=== PATIENT | female | born 1945 | race Caucasian/White ===

== ENCOUNTER → 2016-11-27 | Outpatient (REF) | payer MEDICARE, OTHER ==
[2016-11-27 15:39] LABS: ALBUMIN 3.6 GM/DL (3.2-5.2); ALBUMIN/GLOBULIN RATIO 1.33 (1.00-1.93); BILIRUBIN,TOTAL 0.4 MG/DL (0.2-1.0); CALCIUM LEVEL 8.9 MG/DL (8.8-10.2); CREATININE FOR GFR 1.29 MG/DL (0.55-1.02); GLOMERULAR FILTRATION RATE 43.5 (>39); POTASSIUM SERUM 5.1 MEQ/L (3.5-5.1); TOTAL PROTEIN 6.3 GM/DL (6.4-8.2)
== END ==
LOC: M SFHCLACO 08:04
PROVIDERS: ATTEND Physician Assistant
DX: I10 Essential (primary) hypertension (principal); E11.9 Type 2 diabetes mellitus without complications; E78.2 Mixed hyperlipidemia; E55.9 Vitamin D deficiency, unspecified

== ENCOUNTER → 2017-05-26 | Outpatient (REF) | payer OTHER ==
[2017-05-26 16:01] LABS: ALBUMIN 3.5 GM/DL (3.2-5.2); ALBUMIN/GLOBULIN RATIO 1.13 (1.00-1.93); BILIRUBIN,TOTAL 0.5 MG/DL (0.2-1.0); CREATININE FOR GFR 1.35 MG/DL (0.55-1.02); GLOMERULAR FILTRATION RATE 41.2 (>39); POTASSIUM SERUM 4.8 MEQ/L (3.5-5.1); TOTAL PROTEIN 6.6 GM/DL (6.4-8.2)
== END ==
LOC: M SFHCLACO 08:31
PROVIDERS: ATTEND Physician Assistant
DX: E11.9 Type 2 diabetes mellitus without complications (principal); I10 Essential (primary) hypertension; E78.2 Mixed hyperlipidemia; E55.9 Vitamin D deficiency, unspecified

== ENCOUNTER → 2017-10-01 | Outpatient (REF) | payer OTHER ==
[2017-10-01 15:36] LABS: TOTAL 25(OH) VITAMIN D 21.7 NG/ML (30.0-100.0)
[2017-10-01 15:53] LABS: ALBUMIN 3.1 GM/DL (3.2-5.2); ALBUMIN/GLOBULIN RATIO 0.91 (1.00-1.93); ALKALINE PHOSPHATASE 37 U/L (45-117); ALT/SGPT 20 U/L (12-78); ANION GAP 8 MEQ/L (8-16); AST/SGOT 16 U/L (7-37); BILIRUBIN,TOTAL 0.4 MG/DL (0.2-1.0); BLOOD UREA NITROGEN 17 MG/DL (7-18); CALCIUM LEVEL 8.7 MG/DL (8.8-10.2); CARBON DIOXIDE LEVEL 28 MEQ/L (21-32); CHLORIDE LEVEL 106 MEQ/L (98-107); CHOLESTEROL LEVEL 126 MG/DL (<200); CHOLESTEROL RISK RATIO 3.937 (<5); CREATININE FOR GFR 1.14 MG/DL (0.55-1.02); GLUCOSE, FASTING 150 MG/DL (83-110); HDL CHOLESTEROL 32 MG/DL (>40); LDL CHOLESTEROL 35.2 MG/DL (<100); NON-HDL-C 94 MG/DL; POTASSIUM SERUM 4.1 MEQ/L (3.5-5.1); SODIUM LEVEL 142 MEQ/L (136-145); TOTAL PROTEIN 6.5 GM/DL (6.4-8.2); TRIGLYCERIDES LEVEL 294 MG/DL (<150)
[2017-10-01 17:40] LABS: ESTIMATED AVERAGE GLUCOSE 151 MG/DL (60-110); HEMOGLOBIN A1c 6.9 %
== END ==
LOC: M SFHCLACO 08:25
DX: I10 Essential (primary) hypertension (principal); E11.9 Type 2 diabetes mellitus without complications; E78.2 Mixed hyperlipidemia; E55.9 Vitamin D deficiency, unspecified
CPT/HCPCS: 80053

== ENCOUNTER → 2018-04-06 | Outpatient (REF) | payer OTHER ==
[2018-04-06 15:14] LABS: ALKALINE PHOSPHATASE 43 U/L (45-117); ALT/SGPT 20 U/L (12-78); ANION GAP 7 MEQ/L (8-16); AST/SGOT 15 U/L (7-37); BILIRUBIN,TOTAL 0.4 MG/DL (0.2-1.0); BLOOD UREA NITROGEN 36 MG/DL (7-18); CARBON DIOXIDE LEVEL 27 MEQ/L (21-32); CHLORIDE LEVEL 106 MEQ/L (98-107); CREATININE FOR GFR 1.42 MG/DL (0.55-1.30); GLOMERULAR FILTRATION RATE 38.7 (>39); GLUCOSE, FASTING 150 MG/DL (70-100); POTASSIUM SERUM 5.1 MEQ/L (3.5-5.1); SODIUM LEVEL 140 MEQ/L (136-145); TRIGLYCERIDES LEVEL 269 MG/DL (<150)
[2018-04-06 15:15] LABS: ALBUMIN 3.4 GM/DL (3.2-5.2); CHOLESTEROL LEVEL 117 MG/DL (<200); HDL CHOLESTEROL 30 MG/DL (>40); LDL CHOLESTEROL 33.2 MG/DL (<100); NON-HDL-C 87 MG/DL; TOTAL PROTEIN 6.8 GM/DL (6.4-8.2)
[2018-04-06 15:23] LABS: ESTIMATED AVERAGE GLUCOSE 171 MG/DL (60-110); HEMOGLOBIN A1c 7.6 %
[2018-04-06 15:56] LABS: TOTAL 25(OH) VITAMIN D 28.3 NG/ML (30.0-100.0)
== END ==
LOC: M SFHCLACO 08:04
DX: I10 Essential (primary) hypertension (principal); E78.2 Mixed hyperlipidemia; E11.9 Type 2 diabetes mellitus without complications; N28.9 Disorder of kidney and ureter, unspecified; E55.9 Vitamin D deficiency, unspecified; M15.9 Polyosteoarthritis, unspecified; Z79.899 Other long term (current) drug therapy
CPT/HCPCS: 80053

== ENCOUNTER → 2018-04-13 | Outpatient (REF) | payer OTHER ==
[2018-04-13 15:29] LABS: CREATININE, URINE 52.9 MG/DL; MALB URINE SIEMENS 9.9 MG/L; MAU/CREAT RATIO 18.7 MCG/MG (0.0-30.0)
== END ==
LOC: M SFHCLACO 14:45
DX: N28.9 Disorder of kidney and ureter, unspecified (principal)
CPT/HCPCS: 82043

== ENCOUNTER → 2020-02-28 | Outpatient (CLI) | payer MEDICARE ==
[~2020-02-28] MED LIST: AMLO10TA5 PO; ASPI81TA85 PO; COLE625TAB PO; FENO160T10 PO; FISH1000 PO; FLUT15.819; GLIP10TA6 PO; ISOS30TA4 PO; JANU100T PO; LOSA100T50 PO; METO25TA4 PO; TORS20TA2 PO; VITAD1000T PO
== END ==
LOC: M LABSMTC 13:12
PROVIDERS: ATTEND Anesthesiology
DX: Z01.818 Encounter for other preprocedural examination (principal); Z11.59 Encounter for screening for other viral diseases
CPT/HCPCS: C9803; U0003

== ENCOUNTER 2020-03-02 09:05 | Day surgery (SDC) | payer MEDICARE ==
[~2020-03-02] VITALS: Ht 160 cm; Wt 77.1 kg
[~2020-03-02 09:05] MED LIST changes: -AMLO10TA5 PO; +AMLO1TAB25 PO; -ASPI81TA85 PO; +ASPI81TA86 PO; +D31000TA2 PO; -FLUT15.819; +FLUT15.819 NARES; +ISOS1TAB35 PO; -ISOS30TA4 PO; +NS 1,000 ML IV ONE; -VITAD1000T PO
[2020-03-02] MEDS ORDERED: LIDOCAINE 2% 100MG/5ML SDV (FOR ANES.) As Ordered ONE (10:48)
[2020-03-02] MEDS ORDERED: fentaNYL 100 MCG/2 ML INJECTION (J3010) As Ordered ONE (10:48)
[2020-03-02] MEDS ORDERED: propofoL 200 MG/20 ML VIAL As Ordered ONE (10:48)
[2020-03-02] MEDS ORDERED: ePHEDrine SULFATE 25 MG/5 ML(5MG/ML) SYRINGE As Ordered ONE (11:05)
--- NOTE | 2020-03-02 11:06 | ROOR ---
Patient Name: Madelyn Zepeda Procedure Date: 03/02/2020 10:40 AM Date of : 1945 Age: 74 Room: [facility] Gender: Female Note Status: Finalized Procedure: Upper GI endoscopy Indications: Suspected gastroparesis, Nausea with vomiting Providers: Hero GARCIA MD Referring MD: GULSHAN Montanez PA-C Requesting Provider: Medicines: Monitored Anesthesia Care Complications: No immediate complications. Procedure: Pre-Anesthesia Assessment: - The heart rate, respiratory rate, oxygen saturations, blood pressure, adequacy of pulmonary ventilation, and response to care were monitored throughout the procedure. The Endoscope was introduced through the mouth, and advanced to the second part of duodenum. The upper GI endoscopy was accomplished without difficulty. The patient tolerated the procedure well. Findings: Severe esophagitis was found in the entire esophagus. Biopsies were taken with a cold forceps for histology. A medium-sized hiatal hernia with a few Travis ulcers was found. The Z-line was a variable distance from incisors; the hiatal hernia was sliding. Biopsies were taken with a cold forceps for histology. The exam of the stomach was otherwise normal. The examined duodenum was normal. Impression: - Severe erosive esophagitis. Biopsied. - Medium-sized hiatal hernia with a few Travis erosions at the waist. Biopsied. - Normal examined duodenum. Recommendation: - Use Prilosec (omeprazole) 40 mg daily. - (the script was sent to your pharmacy on file) - Telephone endoscopist for pathology results in 2 weeks. - Gastroparesis diet: - Eat smaller, more frequent meals throughout the day. - Low fat diet. - Liquid/soft foods are tolerated better than solid foods. - Low fiber/well cooked vegetables are tolerated better than high fiber/fibrous foods/raw vegetables. - Avoid medications that inhibit gastric/intestinal motility such as narcotic medications. - If biopsies show simple esophagitis, then continue PPI and dietary regimen. - If biopsies show Barretts esophagus, then would repeat EGD in 3-4 months for surveillance after inflammation resolved. Hero Garcia MD Hero GARCIA MD 03/02/2020 11:06:40 AM Electronically signed by Hero GARCIA MD Number of Addenda: 0 Note Initiated On: 03/02/2020 10:40 AM Estimated Blood Loss: Estimated blood loss: none.
--- NOTE | 2020-03-02 11:33 | ROOR ---
Patient Name: Madelyn Zepeda Procedure Date: 03/02/2020 10:41 AM Date of : 1945 Age: 74 Room: [facility] Gender: Female Note Status: Finalized Procedure: Colonoscopy Indications: High risk colon cancer surveillance: Personal history of colonic polyps, Last colonoscopy: August 2014, Family history of colon cancer in multiple first-degree relatives Providers: Hero GARCIA MD Referring MD: GULSHAN Montanez PA-C Requesting Provider: Medicines: Monitored Anesthesia Care Complications: No immediate complications. Procedure: Pre-Anesthesia Assessment: - The heart rate, respiratory rate, oxygen saturations, blood pressure, adequacy of pulmonary ventilation, and response to care were monitored throughout the procedure. The Colonoscope was introduced through the anus and advanced to the cecum, identified by appendiceal orifice and ileocecal valve. The colonoscopy was performed without difficulty. The patient tolerated the procedure well. The quality of the bowel preparation was good. Findings: The perianal and digital rectal examinations were normal. Five sessile polyps were found in the sigmoid colon and descending colon. The polyps were 5 to 6 mm in size. These polyps were removed with a cold snare. Resection and retrieval were complete. Three sessile polyps were found in the ascending colon and appendiceal orifice. The polyps were 5 to 8 mm in size. These polyps were removed with a cold snare. Resection and retrieval were complete. Mild sigmoid diverticulosis and small internal hemorrhoids. The exam was otherwise without abnormality. Impression: - Five 5 to 6 mm polyps in the sigmoid colon and in the descending colon, removed with a cold snare. Resected and retrieved. - Three 5 to 8 mm polyps in the ascending colon and at the appendiceal orifice, removed with a cold snare. Resected and retrieved. - Mild sigmoid diverticulosis and moderate internal hemorrhoids. - The colon examination was otherwise normal. Recommendation: - Repeat colonoscopy in 3 years for surveillance. Hero Garcia MD Hero GARCIA MD 03/02/2020 11:33:07 AM Electronically signed by Hero GARCIA MD Number of Addenda: 0 Note Initiated On: 03/02/2020 10:41 AM Estimated Blood Loss: Estimated blood loss: none.
[2020-03-02 11:55] VITALS: BP 150/67
[2020-08-22] MEDS ORDERED: VENTAER INH (13:30)
[2020-08-30] MEDS ORDERED: VITA-243 PO (10:13)
[2020-08-30] MEDS ORDERED: ASPI81TA26 PO (10:13)
[2020-09-19] MEDS ORDERED: OMEP40CA97 PO (15:31)
== END 2020-03-02 12:10 | disposition home or self-care (01) ==
LOC: M OPP 09:05
PROVIDERS: ATTEND Internal Medicine Gastroenterology
DX: Z12.11 Encounter for screening for malignant neoplasm of colon (principal); Z86.010 Personal history of colon polyps; Z80.0 Family history of malignant neoplasm of digestive organs; D12.3 Benign neoplasm of transverse colon; D12.5 Benign neoplasm of sigmoid colon; K20.8 Other esophagitis; K44.9 Diaphragmatic hernia without obstruction or gangrene; K25.9 Gastric ulcer, unspecified as acute or chronic, without hemorrhage or perforation; R11.2 Nausea with vomiting, unspecified; K57.30 Diverticulosis of large intestine without perforation or abscess without bleeding; K64.8 Other hemorrhoids; E11.9 Type 2 diabetes mellitus without complications; Z79.82 Long term (current) use of aspirin; Z79.84 Long term (current) use of oral hypoglycemic drugs; Z79.899 Other long term (current) drug therapy; Z91.040 Latex allergy status
CPT/HCPCS: 43239; 45385; 88305; 88313; J3010

== ENCOUNTER 2020-04-04 10:59 | Inpatient (IN) | payer MEDICARE ==
[~2020-04-04] VITALS: Ht 160 cm; Wt 86.0 kg
[~2020-04-04 10:59] MED LIST changes: +AMLO10TA5 PO; -AMLO1TAB25 PO; +ASPI81TA85 PO; -ASPI81TA86 PO; -D31000TA2 PO; -ISOS1TAB35 PO; +ISOS30TA4 PO; -NS 1,000 ML IV ONE; +VITAD1000T PO
[2020-04-04] MEDS ORDERED: NS 1,000 ML IV ONE (12:15)
[2020-04-04 12:38] LABS: BASO % 0.3 % (0.0-1.0); EOS % 0.1 % (0.0-3.0); HEMATOCRIT 37.9 % (36.0-47.0); LYMPH # 0.3 10^3/uL (1.5-5.0); LYMPH % 1.8 % (24.0-44.0); MEAN CORPUSCULAR HEMOGLOBIN 31.4 pg (27.0-33.0); MEAN CORPUSCULAR HGB CONC 34.3 g/dl (32.0-36.5); MEAN CORPUSCULAR VOLUME 91.5 fl (80.0-96.0); MONO # 0.7 10^3/uL (0.0-0.8); MONO % 4.6 % (0.0-5.0); NEUTROPHILS # 14.6 10^3/uL (1.5-8.5); NEUTROPHILS % 92.6 % (36.0-66.0); PLATELET COUNT, AUTOMATED 232 10^3/uL (150-450); RED BLOOD COUNT 4.14 10^6/uL (4.00-5.40); WHITE BLOOD COUNT 15.8 10^3/uL (4.0-10.0)
[2020-04-04 12:53] LABS: APPEARANCE, URINE HAZY (CLEAR); BACTERIA, URINE AUTO 3+ (NEGATIVE); BILIRUBIN, URINE AUTO NEGATIVE (NEGATIVE); BLOOD, URINE BLOOD NEGATIVE (NEGATIVE); COLOR, URINE YELLOW (YELLOW); GLUCOSE, URINE (UA) AUTO NEGATIVE (NEGATIVE); KETONE, URINE AUTO NEGATIVE (NEGATIVE); LEUKOCYTE ESTERASE, URINE AUTO TRACE (NEGATIVE); NITRITE, URINE AUTO NEGATIVE (NEGATIVE); PROTEIN, URINE AUTO NEGATIVE (NEGATIVE); RBC, URINE AUTO 2 /HPF (0-3); SPECIFIC GRAVITY URINE AUTO 1.008 (1.002-1.035); SQUAMOUS EPITHELIAL CELL UR AU 0 /HPF (0-6); UROBILINOGEN, URINE AUTO 0.2 mg/dL (0.0-2.0); WBC, URINE AUTO 14 /HPF (0-3)
[2020-04-04 13:10] LABS: ALBUMIN 3.2 GM/DL (3.2-5.2); ALT/SGPT 230 U/L (12-78); BILIRUBIN,DIRECT 2.1 MG/DL (0.0-0.2); BILIRUBIN,TOTAL 2.8 MG/DL (0.2-1.0); BLOOD UREA NITROGEN 22 MG/DL (7-18); CALCIUM LEVEL 8.7 MG/DL (8.8-10.2); CARBON DIOXIDE LEVEL 25 MEQ/L (21-32); CHLORIDE LEVEL 103 MEQ/L (98-107); CK-MB VALUE MASS < 1.0 NG/ML (<3.6); CPK CREATINE PHOSPHOKINASE 61 U/L (26-192); CREATININE FOR GFR 1.42 MG/DL (0.55-1.30); GLOMERULAR FILTRATION RATE 38.5 (>39); GLUCOSE, FASTING 252 MG/DL (70-100); MB/CK RELATIVE INDEX 1.64 (< OR =4); NT-PRO BNP 535 PG/ML (<125); POTASSIUM SERUM 3.6 MEQ/L (3.5-5.1); SODIUM LEVEL 137 MEQ/L (136-145); TOTAL PROTEIN 6.4 GM/DL (6.4-8.2); TROPONIN I < 0.02 NG/ML (< 0.10)
[2020-04-04] MEDS ORDERED: ISOVUE-370 76% 100ML VIAL As Ordered ONE (14:13)
[2020-04-04] MEDS ORDERED: AMPICILLIN SOD/SULBACTAM SOD 3 GM in D5W MINI-BAG PLUS 100 ML IV ONE (17:15)
[2020-04-04] MEDS ORDERED: ONDANSETRON 4MG/2ML VIAL IV ONE (17:45)
[2020-04-04] MEDS ORDERED: PIPERACILLIN/TAZOBACTAM SOD 3.375 GM in D5W MINI-BAG PLUS 50 ML IV ONE (17:45)
--- NOTE | 2020-04-04 17:45 | REP ---
REASON: Abdominal pain PRIORS: None. CONTRAST: 100 mL Isovue-370. The lung bases are clear. There is a hiatal hernia. There is cholelithiasis. There might be a tiny amount of pericholecystic fluid with a slightly enhancing gallbladder wall. The liver, spleen, pancreas, adrenal glands, and kidneys are within normal limits. The abdominal aorta and para-aortic regions are within normal limits. The bowel loops and their mesenteries are within normal limits. There is no intra-abdominal or intrapelvic mass or adenopathy. There is no free fluid or free air. The osseous structures are within normal limits. IMPRESSION: Cholelithiasis and possible early cholecystitis. There is a hiatal hernia. Electronically Signed by Derrick Park DO 04/04/2020 06:46 P
[2020-04-04] MEDS ORDERED: FLAX100012 PO (18:58)
[2020-04-04] MEDS ORDERED: OMEP-221 PO (18:58)
[2020-04-04] MEDS ORDERED: PIPERACILLIN/TAZOBACTAM SOD 3.375 GM in D5W MINI-BAG PLUS 50 ML IV SCH (19:00)
[2020-04-04] MEDS ORDERED: GLUCOSE 4GM CHEW TABLET PO PRN (19:00)
[2020-04-04] MEDS ORDERED: DEXTROSE 50% 50 ML SYRINGE IV PRN (19:00)
[2020-04-04] MEDS ORDERED: ONDANSETRON 4MG/2ML VIAL IV PRN (19:00)
[2020-04-04] MEDS ORDERED: GLUCAGON INJ 1MG VIAL SC PRN (19:00)
--- NOTE | 2020-04-04 19:16 | HPEPDOC ---
General Date of Admission 04/04/20 Date of Service: Apr 04, 2020 Chief Complaint The patient is a 75-year-old female admitted with a reason for visit of Fever, Pain All Over. Source: Patient Exam Limitations: No limitations Timing/Duration: 24 hours Severity: Severe Associated Symptoms: Loss of appetite History of Present Illness Patient is 75 years old female with past medical history of hyperlipidemia, hypertension, diabetes presented to the hospital with abdominal pain. Patient st ated that in the morning she developed right upper quadrant abdominal pain and stated with nausea and a few episodes of vomiting. Also patient developed fever of 103 with chills. Fever subsided after Tylenol. Patient stated that she never had symptoms before. In emergency room patient was found to have on CT Cholelithiasis and possible early cholecystitis, ultrasound showed dilatation of CBD to 0.9 cm. Also patient was found to have leukocytosis of 15.6 with transaminitis and elevated bilirubin. Dr. Brush will proceed with ERCP tomorrow. Home Medications Scheduled Amlodipine Besylate (Amlodipine Besylate) 10 Mg Tablet, 10 MG PO DAILY, (Reported) Aspirin (Aspir 81) 81 Mg Tablet.dr, 81 MG PO DAILY, (Reported) Cholecalciferol (Vitamin D3) (Vitamin D3) 1,000 Unit Tablet, 2,000 UNITS PO DAILY, (Reported) Colesevelam Hydrochloride (Welchol) 625 Mg Tablet, 1,875 MG PO BID, (Reported) Fenofibrate (Fenofibrate) 160 Mg Tablet, 160 MG PO DAILY, (Reported) Flaxseed Oil (Flaxseed Oil) 1,000 Mg Capsule, 1,000 MG PO DAILY, (Reported) Fluticasone Propionate (Fluticasone Propionate) 15.8 Ml [place].susp, 2 SPRAYS NARES DAILY, (Reported) Glipizide (Glipizide) 10 Mg Tablet, 10 MG PO BID, (Reported) Isosorbide Mononitrate (Isosorbide Mononitrate ER) 30 Mg Tab.er.24h, 30 MG PO DAILY, (Reported) Losartan Potassium (Losartan Potassium) 100 Mg Tablet, 100 MG PO DAILY, (Reported) Metoprolol Tartrate (Metoprolol Tartrate) 25 Mg Tablet, 25 MG PO QHS, (Reported) [place]-3 Fatty Acids/Fish Oil (Fish Oil 1,000 mg Capsule) 1 Each Capsule, 1,000 MG PO DAILY, (Reported) Omeprazole (Omeprazole) 40 Mg Capsule.dr, 40 MG PO DAILY, (Reported) Sitagliptin Phosphate (Januvia) 100 Mg Tablet, 100 MG PO DAILY, (Reported) Torsemide (Torsemide) 20 Mg Tablet, 20 MG PO DAILY, (Reported) Allergies Coded Allergies: latex (Verified Allergy, Intermediate, fingers bled from gloves, 02/28/20) Past Medical History Medical History HYPERTENSION HYPERLIPIDEMIA DIABETES OSTEOARTHRITIS VITAMIN D DEFICIENCY Surgical History TOTAL ABDOMINAL HYSTERECTOMY/BILATERAL SALPINGO-OOPHORECTOMY 1990 EXPLORATORY ABDOMINAL SURGERY - POSSIBLE APPENDECTOMY 1971 Family History FATHER: 70 YRS, CANCER OF BRAIN MOTHER: 88 YRS, COLON CANCER, METASTASIZED TO BLADDER, BUT DID SUFFER FROM HYPERTENSION SIBLINGS: 18 DAYS OL YRS, IBS HAVE DM, A-FIB. ONE SISTER WITH COLON CANCER SON(S): HTN 2 BROTHER(S) , 3 SISTER(S) . 2 SON(S) , 1 DAUGHTER(S) . Social History * Smoker: Denies Alcohol: Denies Drugs: denies A-FIB/CHADSVASC A-FIB History Current/History of A-Fib/PAF?: No Current PO Anticoag Therapy: No Review of Systems Constitutional: Reports: Chills, Fever, Malaise Eyes: Denies: Pain ENT: Denies: Head Aches Skin: Denies: Rash Pulmonary: Denies: Dyspnea, Cough Cardiovascular: Denies: Chest Pain, Palpitations Gastrointestinal: Reports: Nausea, Vomiting, Abdominal Pain Genitourinary: Denies: Dysuria Hematologic: Denies: Bruising Endocrine: Denies: Polydipsia, Polyphagia Musculoskeletal: Denies: Neck Pain, Back Pain Neurological: Denies: Weakness Psych: Reports: Mood Normal Physical Examination General Exam: Positive: Alert, Cooperative Eye Exam: Positive: PERRLA ENT Exam: Positive: Atraumatic Neck Exam: Positive: Supple; Negative: JVD Chest Exam: Positive: Clear to auscultation Heart Exam: Positive: Rate Normal Telemetry: Positive: No significant arrhythmia Abdomen Exam: Positive: BS Hypoactive, Tenderness (right upper quadrant) Extremity Exam: Negative: Clubbing, Cyanosis Skin Exam: Positive: Nl turgor and temperature Neuro Exam: Positive: Strength at 5/5 X4 ext, Cranial Nerves 3-12 NL Psych Exam: Positive: Mental status NL Vital Signs Vital Signs Date Time Temp Pulse Resp B/P (MAP) Pulse Ox O2 Delivery O2 Flow Rate FiO2 04/04/20 17:01 98.2 77 22 161/69 (99) 97 Room Air Laboratory Data Labs 24H Laboratory Tests 2 04/04/20 12:04: Immature Granulocyte % (Auto) 0.6, Neutrophils (%) (Auto) 92.6H, Lymphocytes (%) (Auto) 1.8L, Monocytes (%) (Auto) 4.6, Eosinophils (%) (Auto) 0.1, Basophils (%) (Auto) 0.3, Neutrophils # (Auto) 14.6H, Lymphocytes # (Auto) 0.3L, Monocytes # (Auto) 0.7, Eosinophils # (Auto) 0.0, Basophils # (Auto) 0.0, Nucleated Red Blood Cells % (auto) 0.0, Anion Gap 9, Glomerular Filtration Rate 38.5L, Lactic Acid Level 2.1*H, Calcium Level 8.7L, Total Bilirubin 2.8H, Direct Bilirubin 2.1H, Aspartate Amino Transf (AST/SGOT) 395H, Alanine Aminotransferase (ALT/SGPT) 230H, Alkaline Phosphatase 61, Total Creatine Kinase 61, Creatine Kinase MB < 1.0, Creatine Kinase MB Relative Index 1.64, Troponin I < 0.02, JO-Ndc-Y-Type Natriuretic Peptide 535H, Total Protein 6.4, Albumin 3.2, Albumin/Globulin Ratio 1.0L 04/04/20 12:10: Urine Color YELLOW, Urine Appearance HAZY, Urine pH 5.0, Urine Specific [place] 1.008, Urine Protein NEGATIVE, Urine Glucose (Auto)(UA) NEGATIVE, Urine Ketones (Auto) NEGATIVE, Urine Blood NEGATIVE, Urine Nitrite NEGATIVE, Urine Bilirubin NEGATIVE, Urine Urobilinogen 0.2, Urine Leukocyte Esterase (Auto) TRACEH, Urine WBC (Auto) 14H, Urine RBC (Auto) 2, Urine Hyaline Casts (Auto) 0, Urine Bacteria (Auto) 3+H, Urine Squamous Epithelial Cells 0, Urine Sperm (Auto) CBC/BMP Laboratory Tests 04/04/20 12:04 Microbiology Microbiology 04/04/20 Urine Culture, Received Pending 04/04/20 Respiratory Virus Panel (PCR) (JESUS) - Final, Complete 04/04/20 Blood Culture, Received Pending 7/15/20 Blood Culture, Received Pending Assessment/Plan Patient is 75 years old female with past medical history of hyperlipidemia, hypertension, diabetes presented to the hospital with abdominal pain. Patient stated that in the morning she developed right upper quadrant abdominal pain and stated with nausea and a few episodes of vomiting. Also patient developed fever of 103 with chills. Fever subsided after Tylenol. Patient stated that she never had symptoms before. In emergency room patient was found to have on CT Cholelithiasis and possible early cholecystitis, ultrasound showed dilatation of CBD to 0.9 cm. Also patient was found to have leukocytosis of 15.6. Dr. Brush will proceed with ERCP tomorrow. Problems (1) Sepsis Status: Acute Problem Text: Most likely secondary to initial phase of ascending cholangitis given fever, leukocytosis, right upper quadrant pain, elevated liver enzymes with elevated bilirubin ERCP tomorrow Zosyn IV Clear liquid for now IV fluid Blood culture (2) Common bile duct dilatation Status: Acute Problem Text: Most likely secondary to common bile stone ERCP tomorrow Pain management Appreciate/agree with GI consult (3) Cholecystitis with cholelithiasis Status: Acute Problem Text: See above Plan / VTE VTE Prophylaxis Ordered?: Yes EDDI COLLINS DO Apr 04, 2020 19:16
[2020-04-04] MEDS ORDERED: MORPHINE 2 MG/ML 1ML VIAL (J2270) IV PRN (19:30)
[2020-04-04 20:19] LABS: ALBUMIN 3.2 GM/DL (3.2-5.2); BILIRUBIN,DIRECT 1.8 MG/DL (0.0-0.2); BILIRUBIN,TOTAL 2.3 MG/DL (0.2-1.0); TOTAL PROTEIN 6.5 GM/DL (6.4-8.2)
[2020-04-04] MEDS: NS 1,000 ML IV SCH (22:48)
[2020-04-04] MEDS: HEPARIN SOD (PORCINE) 5000UNITS/ML VIAL (J1644 PER 1000UNITS) SC SCH (22:50)
[2020-04-04] MEDS: HumaLOG INSULIN (NovoLOG) PER UNIT SC SCH (23:51)
[2020-04-05] VITALS (9 sets, daily range): BP systolic 126–145; BP diastolic 52–79
[2020-04-05] MEDS: ACETAMINOPHEN TAB 650MG DOSE (2X325MG) PO PRN ×2 (00:53→09:42)
[2020-04-05] MEDS: PIPERACILLIN/TAZOBACTAM SOD 2.25 GM in D5W MINI-BAG PLUS 50 ML IV SCH ×4 (01:09→18:29)
--- NOTE | 2020-04-05 03:01 | REP ---
RIGHT UPPER QUADRANT ULTRASOUND: Real-time sonographic evaluation of right upper quadrant performed. Gallstones are seen in the gallbladder. There is no gallbladder wall thickening or pericholecystic fluid. There is dilatation of the common bile duct up to 9 mm. There appears to be mild fibrofatty infiltration of the liver. There is no gross liver or pancreatic mass. Right kidney demonstrates no hydronephrosis with normal size, 10.4 cm in length. IMPRESSION: Gallstones in the gallbladder without gallbladder wall thickening or pericholecystic fluid. There is mild dilatation of the common bile duct up to 9 mm. Electronically Signed by Michael Sevilla MD 04/08/2020 11:32 P
[2020-04-05] MEDS: HumaLOG INSULIN (NovoLOG) PER UNIT SC SCH ×3 (06:00→18:30)
[2020-04-05 06:35] LABS: HEMATOCRIT 35.9 % (36.0-47.0); HEMOGLOBIN 12.2 g/dl (12.0-15.5); MEAN CORPUSCULAR HEMOGLOBIN 31.4 pg (27.0-33.0); MEAN CORPUSCULAR VOLUME 92.3 fl (80.0-96.0); PLATELET COUNT, AUTOMATED 197 10^3/uL (150-450); RED BLOOD COUNT 3.89 10^6/uL (4.00-5.40); WHITE BLOOD COUNT 10.5 10^3/uL (4.0-10.0)
[2020-04-05 07:13] LABS: ALBUMIN 2.9 GM/DL (3.2-5.2); BILIRUBIN,TOTAL 2.2 MG/DL (0.2-1.0); CALCIUM LEVEL 8.2 MG/DL (8.8-10.2); CREATININE FOR GFR 1.17 MG/DL (0.55-1.30); GLOMERULAR FILTRATION RATE 48.1 (>39); MAGNESIUM LEVEL 1.7 MG/DL (1.8-2.4); POTASSIUM SERUM 3.5 MEQ/L (3.5-5.1); TOTAL PROTEIN 5.8 GM/DL (6.4-8.2)
[2020-04-05] MEDS: HEPARIN SOD (PORCINE) 5000UNITS/ML VIAL (J1644 PER 1000UNITS) SC SCH ×2 (09:41→19:57)
[2020-04-05] MEDS: NS 1,000 ML IV SCH ×2 (09:41→11:33)
--- NOTE | 2020-04-05 11:32 | IPNPDOC ---
Text Note Date of Service The patient was seen on 04/05/20. NOTE SUBJECTIVE: Patient was seen and examined this morning lying comfortably in bed. She states her pain is much improved from when she came in. She denies any history of gallstones in the past. She had been tolerating clear liquid diet, and this was stopped this morning for ERCP later today. OBJECTIVE: VITAL SIGNS: See below GENERAL: Alert, comfortable, in no acute distress HEENT: Normocephalic, atraumatic, sclerae anicteric, moist mucous membranes NECK: Supple, trachea midline, no lymphadenopathy, no JVD CARDIOVASCULAR: Regular rate and rhythm, normal S1 and S2. No murmurs, rubs, or gallops RESPIRATORY: Clear to auscultation bilaterally with equal air entry bilaterally. No wheezing, rhonchi, or rales. ABDOMEN: Soft, nondistended, bowel sounds present, obese, tender to deep palpation over the right upper quadrant. EXTREMITIES: Trace edema. No cyanosis. Pulses 2+/4 in bilateral upper and lower extremities SKIN: Early, warm, dry NEUROLOGIC: Alert and oriented x3 to person, place and time. Cranial nerves 2-12 grossly intact. No focal deficits appreciated PSYCHIATRIC: Mood and affect appropriate ASSESSMENT/PLAN: 75-year-old female who presented with 1 day of right upper quadrant abdominal pain with nausea and vomiting, admitted for management of suspected ascending cholangitis # Sepsis secondary to ascending cholangitis. 4/4 SIRS criteria with fever 101.7 F, RR 22, HR 97, WBC count 15.8 No clear evidence of choledocholithiasis or acute cholecystitis on imaging. There is evidence of common bile duct dilation, which would likely be due to a distal obstruction GI consulted, appreciate their input and recommendations. Plan for ERCP today to further evaluate. Continue antibiotics with IV Zosyn day #2. Blood cultures 3 pending. #Abnormal liver profile likely related to obstruction as noted above, plan for ERCP today with GI #Elevated lipase. No evidence of acute pancreatitis on CT imaging. Pain profile is not characteristic of acute pancreatitis. May be due to recent obstruction, evaluation with ERCP as noted above #YONNY secondary to dehydration. Improved after IV fluid hydration. Monitor BMP daily. #Diabetes mellitus type 2. Currently nothing by mouth, will switch to consistent carbohydrate diet postoperatively. Hold home oral medications. Sliding scale insulin while inpatient. Hypoglycemia protocol #Hypertension. Hold home antihypertensives, reasses postoperative based on blood pressure #Hyperlipidemia. Hold home medications while nothing by mouth #GERD. Hold home ppi while npo DVT prophylaxis: sc heparin Disposition: Pending ERCP and clinical improvement GME ATTESTATION I have personally evaluated and examined the patient. Discussed with resident/student regarding plan of care and agree with the above assessment and plan. VS,Fishbone, I+O VS, Fishbone, I+O Laboratory Tests 04/04/20 12:04 04/05/20 06:23 Vital Signs Date Time Temp Pulse Resp B/P (MAP) Pulse Ox O2 Delivery O2 Flow Rate FiO2 04/05/20 06:00 98.1 74 19 140/66 (90) 94 Room Air I&O- Last 24 Hours up to 6 AM 04/05/20 05:59 Intake Total 1290 ml Balance 1290 ml LOBO MARTIN D.O. Apr 05, 2020 11:32 JAYCOB VALERIO MD Apr 05, 2020 18:12
[2020-04-05] MEDS ORDERED: LIDOCAINE 2% 100MG/5ML SDV (FOR ANES.) As Ordered ONE (13:44)
[2020-04-05] MEDS ORDERED: ROCURONIUM BROMIDE 50 MG/5 ML VIAL As Ordered ONE (13:44)
[2020-04-05] MEDS ORDERED: dexameTHASONE 4 MG/ML 1ML VIAL (J1100 PER 1MG) As Ordered ONE (13:44)
[2020-04-05] MEDS ORDERED: ONDANSETRON 4MG/2ML VIAL As Ordered ONE (13:44)
[2020-04-05] MEDS ORDERED: propofoL 200 MG/20 ML VIAL As Ordered ONE (13:44)
[2020-04-05] MEDS ORDERED: fentaNYL 100 MCG/2 ML INJECTION (J3010) As Ordered ONE (15:56)
[2020-04-05] MEDS ORDERED: MIDAZOLAM INJ 2MG/2ML VIAL (J2250 PER 1MG) As Ordered ONE (15:56)
[2020-04-05] MEDS ORDERED: ISOVUE-300 61% 50ML VIAL As Ordered ONE (15:59)
--- NOTE | 2020-04-05 16:04 | CR.PDOC ---
General Date of Consultation: Apr 05, 2020 Referring Provider: EDDI VALENTIN DO Attending Physician: BETHEL HAWKINS MD Consultation Primary physician/ hospitalist: Dr. Valentin Reason for consult: Suspected cholangitis. HPI: 75 years old female with past medical history of hyperlipidemia, hypertension, diabetes presented to the hospital with abdominal pain. Patient stated that in the morning she developed right upper quadrant abdominal pain and stated with nausea and a few episodes of vomiting. Also patient developed fever of 103 with chills. Fever subsided after Tylenol. Patient stated that she never had symptoms before. In emergency room patient was found to have on CT Cholelithiasis and possible early cholecystitis, ultrasound showed dilatation of CBD to 0.9 cm. Also patient was found to have leukocytosis of 15.6 with transaminitis and elevated bilirubin. Pertinent negative GI symptoms: Patient denies fever, sick contacts, recent travel, loss of appetite, early satiety or unintentional weight loss. No history of hematemesis, melena or hematochezia. Patient reports regular bowel movements. Review of Systems: GI: as stated above CVS: No chest pain, No palpitations, No leg swelling. RS: No Shortness of breath, No Wheezing, no cough CIVIL DRAFTER: No dizziness, No motor weakness, No sensory problems Hematology: No bruising, No gum bleeding, Musculoskeletal: No joint pain, ambulating well. Skin: No rash : No hematuria, No burning sensation of the urine ENT: No ear discharge/ pain, No dysphagia. Eyes: No photophobia. Jaundice Home medications: reviewed. Antithrombotic agents -none Medical h/o: As above. Surgical h/o: None on abdomen. Social h/o: Alcohol_ rare/ social, smoking: Denies, IVDA/ drugs: denies . Family h/o of GI cancers - None Prior Endoscopies: --- EGD : done in February [address] Harvey for acid reflux -- noted severe reflux esophagitis. --- Colonoscopy : Done for screening in February [address] Harvey - reviewed. Prior GI evaluations: Follows with Dr. Harvey. Exam: Vitals: reviewed General: Alert and oriented x 3, not in distress HEENT: NO pallor, no icterus. Normal oropharynx, NO cervical lymph nodes. Chest: symmetric with bilateral clear air entry, CVS: S1, S2 heard, normal, no murmurs . Abdomen: non-distended, no surgical scars, soft, non-tender, no palpable masses, normal bowel sounds heard. Rectal exam: Patient refused / Deferred at this time in view of scheduled colonoscopy. Extremities: no pedal edema, pulses palpable. CIVIL DRAFTER: no focal motor or sensory deficits. Moves all extremities Skin: no rash. Labs: reviewed. Imaging: reviewed. Impression: - Acute onset epigastric and right upper quadrant abdominal pain, nausea, vomiting and fevers with labs showed cholestatic pattern and elevated WBC, elevated lipase and Ultrasound showing gallstones and dilated bile duct DDxBiliary pancreatitis with reactive changes vs Cholangitis. Recommendations: - Patient educated about the test results, possible differential diagnoses and All questions answered. - NPO - IV hydration prefer ringers lactate drip ( adjust rate between 3-5ml/ hour drip for 12- 24 hours and then based on fluid status. - Will give broad spectrum antibiotics - Will schedule for urgent ERCP. The procedure, indications, risks (bleeding, perforation, infection, hypotension, respiratory depression, allergy, need for endotracheal intubation, surgery, colostomy, cardiac arrest, even ), benefits, limitations (e.g., missing a lesion), and all other alternatives (including no intervention) were explained to the patient who understood and agreed for the procedure. - Follow operative report for post procedure recommendations. Plan of care discussed with patient and primary team. Patient verbalized understanding and agreed with the plan. Vital Signs/I&O Vital Signs Date Time Temp Pulse Resp B/P (MAP) Pulse Ox O2 Delivery O2 Flow Rate FiO2 04/05/20 14:00 99.2 75 20 134/64 (87) 92 Room Air I&O- Last 24 Hours up to 6 AM 04/05/20 06:00 Intake Total 1290 ml Balance 1290 ml Laboratory Data Labs 24H Laboratory Tests 2 04/04/20 19:32: Lactic Acid Followup at 4 Hours 1.1, Total Bilirubin 2.3H, Direct Bilirubin 1.8H, Aspartate Amino Transf (AST/SGOT) 344H, Alanine Aminotransferase (ALT/SGPT) 257H, Alkaline Phosphatase 63, Total Protein 6.5, Albumin 3.2, Albumin/Globulin Ratio 1.0L, Lipase 3491H 04/04/20 23:50: Bedside Glucose (Misc Panel) 144H 04/05/20 06:23: Total Bilirubin 2.2H, Aspartate Amino Transf (AST/SGOT) 250H, Alanine Aminotransferase (ALT/SGPT) 217H, Alkaline Phosphatase 50, Total Protein 5.8L, Albumin 2.9L, Albumin/Globulin Ratio 1.0L, Nucleated Red Blood Cells % (auto) 0.0, Anion Gap 6L, Glomerular Filtration Rate 48.1, Calcium Level 8.2L, Magnesium Level 1.7L 04/05/20 06:35: Bedside Glucose (Misc Panel) 77L 04/05/20 11:48: Bedside Glucose (Misc Panel) 136H CBC/BMP Laboratory Tests 04/05/20 06:23 Microbiology Microbiology 04/04/20 Blood Culture, Received Pending 04/04/20 Urine Culture, Received Pending 04/04/20 Respiratory Virus Panel (PCR) (JESUS) - Final, Complete 04/04/20 Blood Culture - Preliminary, Resulted No growth after 24 hours . All specim... 04/04/20 Blood Culture - Preliminary, Resulted No growth after 24 hours . All specim... Allergies Coded Allergies: latex (Verified Allergy, Intermediate, fingers bled from gloves, 02/28/20) Home Medications Scheduled Amlodipine Besylate (Amlodipine Besylate) 10 Mg Tablet, 10 MG PO DAILY, (Re ported) Amoxicillin/Potassium Clav (Amox-Clav 875-125 mg Tablet) 1 Each Tablet, 875 MG PO BID for 7 Days, #14 Aspirin (Aspir 81) 81 Mg Tablet.dr, 81 MG PO DAILY, (Reported) Cholecalciferol (Vitamin D3) (Vitamin D3) 1,000 Unit Tablet, 2,000 UNITS PO DAILY, (Reported) Colesevelam Hydrochloride (Welchol) 625 Mg Tablet, 1,875 MG PO BID, (Reported) Fenofibrate (Fenofibrate) 160 Mg Tablet, 160 MG PO DAILY, (Reported) Flaxseed Oil (Flaxseed Oil) 1,000 Mg Capsule, 1,000 MG PO DAILY, (Reported) Fluticasone Propionate (Fluticasone Propionate) 15.8 Ml [place].susp, 2 SPRAYS NARES DAILY, (Reported) Glipizide (Glipizide) 10 Mg Tablet, 10 MG PO BID, (Reported) Isosorbide Mononitrate (Isosorbide Mononitrate ER) 30 Mg Tab.er.24h, 30 MG PO DAILY, (Reported) Losartan Potassium (Losartan Potassium) 100 Mg Tablet, 100 MG PO DAILY, (Reported) Metoprolol Tartrate (Metoprolol Tartrate) 25 Mg Tablet, 25 MG PO QHS, (Reported) [place]-3 Fatty Acids/Fish Oil (Fish Oil 1,000 mg Capsule) 1 Each Capsule, 1,000 MG PO DAILY, (Reported) Omeprazole (Omeprazole) 40 Mg Capsule.dr, 40 MG PO DAILY, (Reported) Sitagliptin Phosphate (Januvia) 100 Mg Tablet, 100 MG PO DAILY, (Reported) Torsemide (Torsemide) 20 Mg Tablet, 20 MG PO DAILY, (Reported) BETHEL HAWKINS MD Apr 05, 2020 16:04
[2020-04-05] MEDS ORDERED: SUGAMMADEX SODIUM 500 MG/5 ML VIAL (BRIDION) As Ordered ONE (16:45)
--- NOTE | 2020-04-05 17:44 | ROOR ---
Patient Name: Madelyn Zepeda Procedure Date: 04/05/2020 4:36 PM Date of : 1945 Age: 75 Room: Main OR Gender: Female Note Status: Finalized Procedure: ERCP Indications: Bile duct stone(s), Suspected ascending cholangitis, Acute pancreatitis suspected due to gallstone Providers: Carlos Brush MD Referring MD: Milton Valentin Do Requesting Provider: Medicines: Monitored Anesthesia Care Complications: No immediate complications. Procedure: Pre-Anesthesia Assessment: - Prior to the procedure, a History and Physical was performed, and patient medications and allergies were reviewed. The patient is competent. The risks and benefits of the procedure and the sedation options and risks were discussed with the patient. All questions were answered and informed consent was obtained. Patient identification and proposed procedure were verified by the physician, the nurse and the anesthesiologist in the procedure room. Mental Status Examination: alert and oriented. Airway Examination: normal oropharyngeal airway and neck mobility. Respiratory Examination: clear to auscultation. CV Examination: normal. Prophylactic Antibiotics: The patient does not require prophylactic antibiotics. Prior Anticoagulants: The patient has taken no previous anticoagulant or antiplatelet agents. ASA Grade Assessment: II - A patient with mild systemic disease. After reviewing the risks and benefits, the patient was deemed in satisfactory condition to undergo the procedure. The anesthesia plan was to use monitored anesthesia care (MAC). Immediately prior to administration of medications, the patient was re-assessed for adequacy to receive sedatives. The heart rate, respiratory rate, oxygen saturations, blood pressure, adequacy of pulmonary ventilation, and response to care were monitored throughout the procedure. The physical status of the patient was re-assessed after the procedure. The Duodenoscope was introduced through the mouth, and advanced to the duodenum and used to inject contrast into the bile duct. The ERCP was accomplished without difficulty. The patient tolerated the procedure well. Findings: The clinical appeals auditor film was normal. The esophagus was successfully intubated under direct vision without detailed examination of the pharynx, larynx, and associated structures, and upper GI tract. The upper GI tract was grossly normal. The major papilla was adjacent to a diverticulum. A 0.035 inch x 260 cm straight Hydra Jagwire was passed into the biliary tree. The short-nosed traction sphincterotome was passed over the guidewire and the bile duct was then deeply cannulated. Contrast was injected. I personally interpreted the bile duct images. Ductal flow of contrast was adequate. Image quality was adequate. Contrast extended to the entire biliary tree. The main bile duct was severely dilated and diffusely dilated, with an obstruction. The largest diameter was 10 mm. Biliary sphincterotomy was made with a monofilament traction (standard) sphincterotome using ERBE electrocautery. There was no post-sphincterotomy bleeding. To discover objects, the biliary tree was swept with a 10 mm balloon starting at the bifurcation. Sludge was swept from the duct. Pus was swept from the duct. One 10 Fr by 7 cm plastic stent with a single external flap and a single internal flap was placed into the common bile duct. Bile flowed through the stent. The stent was in good position. Occlusion cholangiogram at the end of the procedure did not show any residual filling defects. Pancreatic duct was neither cannulated nor opacified. Impression: - The major papilla was adjacent to a diverticulum. - The entire main bile duct was severely dilated, with an obstruction. - A biliary sphincterotomy was performed. - The biliary tree was swept and sludge and pus were found. - One plastic stent was placed into the common bile duct. Recommendation: - The patient will be observed post-procedure, until all discharge criteria are met. - [facility]. - Patient has a contact number available for emergencies. The signs and symptoms of potential delayed complications were discussed with the patient. Return to normal activities tomorrow. Written discharge instructions were provided to the patient. - Clear liquid diet for 1 day, then advance as tolerated to low fat diet. - Use broad spectrum antibiotics for 7 days. - Continue present medications. - Recommend acid suppression medication (due to known severe esophagitis in last EGD done in February 2020). - Give IV fluids for biliary pancreatitis ( prefer ringers lactate). - Repeat ERCP in 3 months to remove stent and brush cytology of distal CBD. - Refer to a surgeon for cholecystectomy prior to stent removal ( prefer inpatient evaluation). - Telephone GI clinic to schedule appointment in [facility] (address [address], [address], [place] [address]) in 4 -- 6 weeks. Please call GI clinic @ [phone] for apppointment date and time. - Return to primary care physician. Carlos Brush MD Carlos Brush MD 04/05/2020 5:44:28 PM Electronically signed by Carlos Brush MD Number of Addenda: 0 Note Initiated On: 04/05/2020 4:36 PM Estimated Blood Loss: Estimated blood loss: none.
[2020-04-05] MEDS ORDERED: fentaNYL 100 MCG/2 ML INJECTION (J3010) IV PRN (17:45)
[2020-04-05] MEDS ORDERED: LR 1,000 ML IV SCH ×2 (17:45→20:00)
[2020-04-05] MEDS ORDERED: ONDANSETRON 4MG/2ML VIAL IV PRN (17:45)
[2020-04-05] MEDS ORDERED: LR 1,000 ML IV ONE (18:00)
[2020-04-05] MEDS ORDERED: HumaLOG INSULIN (NovoLOG) PER UNIT SC SCH (21:00)
[2020-04-06] MEDS: PIPERACILLIN/TAZOBACTAM SOD 2.25 GM in D5W MINI-BAG PLUS 50 ML IV SCH ×3 (00:42→12:26)
[2020-04-06] MEDS: ACETAMINOPHEN TAB 650MG DOSE (2X325MG) PO PRN (00:43)
--- NOTE | 2020-04-06 00:59 | REP ---
C-ARM VIEWS DURING ERCP: Multiple C-arm views are performed during ERCP exam. Common bile duct is catheterized and is opacified with contrast. It appears mildly dilated. Catheter manipulation is performed. A stent is placed in the distal common bile duct at the ampulla of Vater. 29 seconds fluoroscopy time utilized. Electronically Signed by Michael Sevilla MD 04/09/2020 09:15 A
[2020-04-06 06:00] VITALS: BP 163/73
[2020-04-06 08:51] LABS: HEMATOCRIT 35.5 % (36.0-47.0); HEMOGLOBIN 11.8 g/dl (12.0-15.5); MEAN CORPUSCULAR HEMOGLOBIN 30.8 pg (27.0-33.0); MEAN CORPUSCULAR HGB CONC 33.2 g/dl (32.0-36.5); MEAN CORPUSCULAR VOLUME 92.7 fl (80.0-96.0); PLATELET COUNT, AUTOMATED 182 10^3/uL (150-450); RED BLOOD COUNT 3.83 10^6/uL (4.00-5.40)
[2020-04-06] MEDS ORDERED: ASPIRIN 81 MG ENTERIC TAB PO SCH (09:00)
[2020-04-06] MEDS ORDERED: ISOSORBIDE MON. (IMDUR) 30 MG XR TAB PO SCH (09:00)
[2020-04-06] MEDS ORDERED: COLESEVELAM 625 MG TAB (WELCHOL) PO SCH (09:00)
[2020-04-06] MEDS ORDERED: amLODIPine 10 MG TAB PO SCH (09:00)
[2020-04-06] MEDS ORDERED: LOSARTAN 50MG TABLET PO SCH (09:00)
[2020-04-06] MEDS ORDERED: VITAMIN D 1,000 INTERNATIONAL UNITS TABLET PO SCH (09:00)
[2020-04-06] MEDS ORDERED: SITagliptin 50 MG TAB (JANUVIA) PO SCH (09:00)
[2020-04-06] MEDS ORDERED: TORSEMIDE 20 MG TAB PO SCH (09:00)
[2020-04-06 09:26] LABS: ALBUMIN 2.6 GM/DL (3.2-5.2); BILIRUBIN,TOTAL 0.8 MG/DL (0.2-1.0); CALCIUM LEVEL 8.2 MG/DL (8.8-10.2); CREATININE FOR GFR 1.25 MG/DL (0.55-1.30); GLOMERULAR FILTRATION RATE 44.6 (>39); MAGNESIUM LEVEL 1.8 MG/DL (1.8-2.4); POTASSIUM SERUM 3.6 MEQ/L (3.5-5.1); TOTAL PROTEIN 5.8 GM/DL (6.4-8.2)
[2020-04-06] MEDS: HEPARIN SOD (PORCINE) 5000UNITS/ML VIAL (J1644 PER 1000UNITS) SC SCH (09:45)
[2020-04-06] MEDS: HumaLOG INSULIN (NovoLOG) PER UNIT SC SCH ×2 (09:46→12:00)
[2020-04-06 09:48] VITALS: BP 157/68
[2020-04-06] MEDS ORDERED: AMOX875T2 PO (13:45)
[2020-04-06 14:00] VITALS: BP 131/56
--- NOTE | 2020-04-06 17:43 | DS.PDOC ---
Discharge Summary General Date of Admission Apr 04, 2020 at 18:53 Date of Discharge 04/06/2020 Primary Care Physician: Ellie Zamudio PA-C, LAC Attending Physician: JAYCOB VALERIO MD Specialist/Consultants Involve: BETHEL HAWKINS MD Discharge Summary PROCEDURES PERFORMED DURING STAY: ERCP with CBD stent placement. ADMITTING DIAGNOSES: 1. Sepsis secondary to ascending cholangitis 2. Common bile duct dilation 3. Cholecystitis with cholelithiasis 4. Elevated liver enzymes and lipase secondary to obstruction 5. YONNY, resolved 6. DM type 2 7. HTN 8. HLD 9. GERD DISCHARGE DIAGNOSES: 1. Sepsis secondary to ascending cholangitis, resolved 2. Common bile duct dilation 2/2 obstruction, resolved s/p ERCP 3. Cholecystitis with cholelithiasis, improved 4. Elevated liver enzymes and lipase secondary to obstruction 5. YONNY, resolved 6. DM type 2 7. HTN 8. HLD 9. GERD COMPLICATIONS/CHIEF COMPLAINT: Cholecystitis W/ Cholelithiasis. HISTORY OF PRESENT ILLNESS: 75 year old female with past medical history of hyperlipidemia, hypertension, diabetes presented to the hospital with abdominal pain. Patient stated that in the morning she developed right upper quadrant abdominal pain and stated with nausea and a few episodes of vomiting. Also patient developed fever of 103 with chills. Fever subsided after Tylenol. Patient stated that she never had symptoms before. In emergency room patient was found to have on CT Cholelithiasis and possible early cholecystitis, ultrasound showed dilatation of CBD to 0.9 cm. Also patient was found to have leukocytosis of 15.6 with transaminitis and elevated bilirubin. HOSPITAL COURSE: Patient was admitted to the hospital and Dr. Hawkins was consulted. He elected to proceed with ERCP to assess for compile duct obstruction. She was kept nothing by mouth overnight and had improvement of her pain in the morning. During the procedure, and obstruction was relieved and a stent was placed in the common bile duct. She tolerated the procedure well without any complications. The patient had been started on antibiotics with IV Zosyn. Dr. Hawkins recommended 7 days of antibiotic therapy, advancement to a low-fat diet as tolerated, continued PPI therapy, general surgery referral for outpatient cholecystectomy, and follow-up ERCP in 3 months for biliary stent removal. She was able to tolerate a diet and switch him to oral antibiotics with Augmentin for 7 days. She worked with physical therapy who cleared her for discharge home. Follow-up was arranged with Dr. Hawkins as well as referral to Dr. Espinal of general surgery. DISCHARGE MEDICATIONS: Please see below. ALLERGIES: Please see below. PHYSICAL EXAMINATION ON DISCHARGE: VITAL SIGNS: Please see below. GENERAL: Alert, comfortable, in no acute distress HEENT: Normocephalic, atraumatic, sclerae anicteric, moist mucous membranes NECK: Supple, trachea midline, no lymphadenopathy, no JVD CARDIOVASCULAR: Regular rate and rhythm, normal S1 and S2. No murmurs, rubs, or gallops RESPIRATORY: Clear to auscultation bilaterally with equal air entry bilaterally. No wheezing, rhonchi, or rales. ABDOMEN: Soft, nondistended, bowel sounds present, obese, tender to deep palpation over the right upper quadrant. EXTREMITIES: Trace edema. No cyanosis. Pulses 2+/4 in bilateral upper and lower extremities SKIN: [place], warm, dry NEUROLOGIC: Alert and oriented x3 to person, place and time. Cranial nerves 2-12 grossly intact. No focal deficits appreciated PSYCHIATRIC: Mood and affect appropriate LABORATORY DATA: Please see below. IMAGING: - CT abdomen/pelvis: Cholelithiasis and possible early cholecystitis. There is a hiatal hernia. - Abdominal U/S: Gallstones in the gallbladder without gallbladder wall thickening or pericholecystic fluid. There is mild dilatation of the common bile duct up to 9 mm. PROGNOSIS: Fair ACTIVITY: As tolerated. DIET: Low fat diet DISCHARGE PLAN: One week course of oral antibiotics, follow up as noted. DISPOSITION: 01 Home, Self-Care. DISCHARGE INSTRUCTIONS: 1. Please complete the full course of antibiotics and follow up as scheduled with your PCP, GI, and general surgery. ITEMS TO FOLLOWUP ON ON OUTPATIENT: 1. F/U PCP to discuss hospital stay and general medical management 2. F/U Dr. Hawkins for biliary stent 3. F/U General surgery Dr. Espinal for cholecystectomy DISCHARGE CONDITION: Stable. TIME SPENT ON DISCHARGE: 35 minutes. I have personally evaluated and examined the patient. Discussed with resident/student regarding plan of care and agree with the above assessment and plan. Vital Signs/I&Os Vital Signs Date Time Temp Pulse Resp B/P (MAP) Pulse Ox O2 Delivery O2 Flow Rate FiO2 04/06/20 14:00 98.5 81 17 131/56 (81) 94 04/05/20 22:00 Room Air 04/05/20 18:01 2 I&O- Last 24 Hours up to 6 AM 04/06/20 06:00 Intake Total 2840 ml Output Total 1450 ml Balance 1390 ml Laboratory Data Labs 24H Laboratory Tests 2 04/05/20 18:27: Bedside Glucose (Misc Panel) 136H 04/05/20 23:53: Bedside Glucose (Misc Panel) 282H 04/06/20 07:33: Bedside Glucose (Misc Panel) 209H 04/06/20 08:40: Nucleated Red Blood Cells % (auto) 0.0, Anion Gap 10, Glomerular Filtration Rate 44.6, Calcium Level 8.2L, Magnesium Level 1.8, Total Bilirubin 0.8#, Aspartate Amino Transf (AST/SGOT) 159H, Alanine Aminotransferase (ALT/SGPT) 199H, Alkaline Phosphatase 55, Total Protein 5.8L, Albumin 2.6L, Albumin/Globulin Ratio 0.8L 04/06/20 11:58: Bedside Glucose (Misc Panel) 115H CBC/BMP Laboratory Tests 04/06/20 08:40 FSBS Laboratory Tests Test 04/05/20 18:27 04/05/20 23:53 04/06/20 07:33 04/06/20 11:58 Range/Units Bedside Glucose (Misc Panel) 136 282 209 115 83-110 MG/DL Microbiology Microbiology 04/04/20 Blood Culture - Preliminary, Resulted No growth after 24 hours . All specim... 04/04/20 Urine Culture, Received Pending 04/04/20 Respiratory Virus Panel (PCR) (JESUS) - Final, Complete 04/04/20 Blood Culture - Preliminary, Resulted No Growth after 48 hours. All Specime... 04/04/20 Blood Culture - Preliminary, Resulted No Growth after 48 hours. All Specime... Discharge Medications Scheduled Amlodipine Besylate (Amlodipine Besylate) 10 Mg Tablet, 10 MG PO DAILY, (Reported) Amoxicillin/Potassium Clav (Amox-Clav 875-125 mg Tablet) 1 Each Tablet, 875 MG PO BID Aspirin (Aspir 81) 81 Mg Tablet.dr, 81 MG PO DAILY, (Reported) Cholecalciferol (Vitamin D3) (Vitamin D3) 1,000 Unit Tablet, 2,000 UNITS PO DAILY, (Reported) Colesevelam Hydrochloride (Welchol) 625 Mg Tablet, 1,875 MG PO BID, (Reported) Fenofibrate (Fenofibrate) 160 Mg Tablet, 160 MG PO DAILY, (Reported) Flaxseed Oil (Flaxseed Oil) 1,000 Mg Capsule, 1,000 MG PO DAILY, (Reported) Fluticasone Propionate (Fluticasone Propionate) 15.8 Ml Dalton.susp, 2 SPRAYS NARES DAILY, (Reported) Glipizide (Glipizide) 10 Mg Tablet, 10 MG PO BID, (Reported) Isosorbide Mononitrate (Isosorbide Mononitrate ER) 30 Mg Tab.er.24h, 30 MG PO DAILY, (Reported) Losartan Potassium (Losartan Potassium) 100 Mg Tablet, 100 MG PO DAILY, (Reported) Metoprolol Tartrate (Metoprolol Tartrate) 25 Mg Tablet, 25 MG PO QHS, (Reported) [place]-3 Fatty Acids/Fish Oil (Fish Oil 1,000 mg Capsule) 1 Each Capsule, 1,000 MG PO DAILY, (Reported) Omeprazole (Omeprazole) 40 Mg Capsule.dr, 40 MG PO DAILY, (Reported) Sitagliptin Phosphate (Januvia) 100 Mg Tablet, 100 MG PO DAILY, (Reported) Torsemide (Torsemide) 20 Mg Tablet, 20 MG PO DAILY, (Reported) Allergies Coded Allergies: latex (Verified Allergy, Intermediate, fingers bled from gloves, 02/28/20) LOBO MARTIN D.O. Apr 06, 2020 17:43 JAYCOB VALERIO MD Apr 06, 2020 19:19
[2020-04-06] MEDS ORDERED: METOPROLOL TART 25 MG TABLET PO SCH (21:00)
[2020-04-06] MEDS ORDERED: HumaLOG INSULIN (NovoLOG) PER UNIT SC SCH (21:00)
== END 2020-04-06 16:05 | disposition home or self-care (01) | DRG 872 ==
LOC: M ED 10:59 → M ED INP 18:53 → ENRESERV 23:55 → M MSPAV 04-05 00:58
PROVIDERS: ADMIT Internal Medicine; ATTEND Student in an Organized Health Care Education/Training Program
PROC: 0F798DZ Dilation of Common Bile Duct with Intraluminal Device, Via Natural or Artificial Opening Endoscopic (ICD-10-PCS; 2020-04-05)
PROC: 0FC98ZZ Extirpation of Matter from Common Bile Duct, Via Natural or Artificial Opening Endoscopic (ICD-10-PCS; principal; 2020-04-05 16:00)
DX: A41.9 Sepsis, unspecified organism (principal); N17.9 Acute kidney failure, unspecified; K80.51 Calculus of bile duct without cholangitis or cholecystitis with obstruction; E78.5 Hyperlipidemia, unspecified; K21.9 Gastro-esophageal reflux disease without esophagitis; I10 Essential (primary) hypertension; E11.9 Type 2 diabetes mellitus without complications; E86.0 Dehydration; E55.9 Vitamin D deficiency, unspecified; M19.90 Unspecified osteoarthritis, unspecified site; Z79.82 Long term (current) use of aspirin; Z79.84 Long term (current) use of oral hypoglycemic drugs; Z79.899 Other long term (current) drug therapy; Z91.040 Latex allergy status; Z11.59 Encounter for screening for other viral diseases

== ENCOUNTER → 2020-05-24 | Outpatient (REF) | payer MEDICARE ==
[~2020-05-24] MED LIST changes: -AMLO10TA5 PO; +AMLO1TAB25 PO; +AMOX875T2 PO; -ASPI81TA85 PO; +ASPI81TA86 PO; +D31000TA2 PO; +FLAX100012 PO; +OMEP-221 PO; -VITAD1000T PO
[2020-05-24 19:09] LABS: ALBUMIN 3.3 GM/DL (3.2-5.2); BILIRUBIN,TOTAL 0.4 MG/DL (0.2-1.0); CALCIUM LEVEL 9.3 MG/DL (8.8-10.2); CREATININE FOR GFR 1.24 MG/DL (0.55-1.30); FREE T4 1.13 NG/DL (0.76-1.46); POTASSIUM SERUM 4.2 MEQ/L (3.5-5.1); THYROID STIMULATING HORMONE 2.32 uIU/ML (0.358-3.740); TOTAL PROTEIN 6.7 GM/DL (6.4-8.2)
[2020-05-24 19:36] LABS: HEMOGLOBIN A1c 8.2 %
== END ==
LOC: M SFHCADAM 18:10
PROVIDERS: ATTEND Family Medicine
DX: E11.9 Type 2 diabetes mellitus without complications (principal)

== ENCOUNTER → 2020-06-02 | Outpatient (CLI) | payer MEDICARE | LOC: M LABSMTC 09:20 | PROVIDERS: ATTEND Anesthesiology | DX: Z01.812 Encounter for preprocedural laboratory examination (principal); Z20.828 Contact with and (suspected) exposure to other viral communicable diseases | CPT/HCPCS: C9803; U0003 ==

== ENCOUNTER 2020-06-07 06:10 | Day surgery (SDC) | payer MEDICARE ==
--- NOTE | 2020-05-25 09:14 | CR ---
DATE OF ANTICIPATED ADMISSION: 06/07/2020 This is a medical evaluation of Madelyn Zepeda, who is undergoing elective cholecystectomy by Dr. Espinal on 06/07/2020. She was recently hospitalized in March for acute cholangitis and underwent endoscopic retrograde cholangiopancreatography (ERCP) and has a biliary stent in place. She appears to be optimized with her proposed procedure (lab work pending). Unless there are unforeseen abnormalities in the pending labs, she should be able to proceed without excessive surgical risk. She was recently hospitalized for sudden cholangitis. Underwent ERCP. Biliary stent is in place. Her primary care provider is on leave. I have not seen Madelyn previously. She appears to have type 2 diabetes. The last hemoglobin A1c I have access to is from 2 years ago, and it was 7.x. She has a history of hypertensive heart disease, hyperlipidemia, currently intolerant to statins, per her description. Currently has acute kidney injury, on metformin, though I do not see that documented, and that is based on her description. There is no documented history of coronary artery disease, peripheral arterial disease, or any significant lung disease. SURGICAL HISTORY: 1. Hysterectomy with bilateral salpingo-oophorectomy (BSO) in 1990. 2. Appendectomy in 1971. 3. ERCP with biliary stent March 2020. ALLERGIES: She has a questionable allergy to Latex, in that her fingers apparently bled when she was wearing Latex gloves. It sounds more like a contact dermitis than actual allergy. Her office record does not list any allergies, but she appears to be intolerant of both statins and metformin. SOCIAL HISTORY: Nonsmoker. No alcohol. No drug use. Lives with family. REVIEW OF SYSTEMS: No chest pain, shortness of breath, cough, wheeze, hemoptysis, polyuria, polydipsia, rectal bleeding, epistaxis, urinary bleeding, fever, chills, night sweats, syncope. MEDICATIONS: - WelChol 625 mg three tablets twice a day - metoprolol tartrate 25 mg at bedtime - glipizide 10 mg twice a day - Januvia 100 mg daily - fenofibrate 160 mg daily - losartan 100 mg daily - amlodipine 10 mg daily - torsemide 20 mg daily - isosorbide mononitrate ER 30 mg daily - omeprazole 40 mg daily - aspirin 81 mg daily - fish oil, flax seed, and vitamin D [id number]. - fluticasone nasal spray two sprays daily - albuterol inhaler two puffs four times a day as needed PHYSICAL EXAMINATION: Weight 191 pounds, 130/74, pulse 77, respirations 18, 97% oxygen saturation, 97.9 degrees. GENERAL IMPRESSION: Alert, conversant. No distress. Pupils equal, round, reactive to light. Tympanic membranes (TMs) and oropharynx benign. NECK: No masses. LUNGS: Clear. HEART: Regular rate and rhythm. A1/6 systolic ejection murmur. ABDOMEN: Soft, nontender. No masses. EXTREMITIES: No clubbing, cyanosis, or edema. Normal strength in the arms and legs. LABORATORY DATA: EKG showed sinus rhythm. Other lab work is pending. In the hospital in March her lab work showed a hemoglobin of 13. Normal platelets. Essentially normal renal function with GFR of 44 after hydration. IMPRESSION: 1. Patient should be able to proceed with the proposed elective cholecystectomy without excessive surgical risk. I ordered a comprehensive metabolic profile (CMP) and hemoglobin A1c, as I do not have access to hemoglobin A1c more recent than 2018. Assuming there are no unforeseen abnormalities in the pending lab work, she should be considered optimized for the procedure. 2. Type 2 diabetes. Advise holding glipizide and Januvia on the morning of the procedure. Sliding-scale insulin coverage postoperatively until she resumes her normal diet. 3. Hypertensive heart disease. I advise her not to take losartan nor torsemide on the morning of the proposed procedure. She can take her amlodipine 10 mg daily that morning as well as metoprolol 25 mg the evening before surgery. 4. Hyperlipidemia. Hold her WelChol and fenofibrate postoperatively. Patient is apparently intolerant to statins. 5. History of severe erosive esophagitis. She had an esophagogastroduodenoscopy (EGD) and colonoscopy recently that showed severe erosive esophagitis. She will continue proton pump inhibitor (PPI) therapy with Protonix 40 mg intravenous (IV) while nothing by mouth postoperatively and then resuming omeprazole 40 mg daily once she is taking oral again. 6. Patient is on isosorbide mononitrate 30 mg ER. She gives no past history of coronary artery disease, and I do not see history of coronary artery disease listed in her office record that is available to me (our electronic medical record from the office is currently not operational, and I do not have access to significant portions of her chart). Her EKG is normal. If she does have coronary disease, which she is unaware of, she would be considered optimized for surgery in any case. DAY
[~2020-06-07] VITALS: Ht 160 cm; Wt 87.1 kg
[~2020-06-07 06:10] MED LIST changes: +BUPIVACAINE HCL 0.25% 30ML VIAL As Ordered ONE; +LIDOCAINE 1% MDV 20ML VIAL SQ PRN; +LIDOCAINE 1% SDV 30ML VIAL As Ordered ONE
[2020-06-07] MEDS ORDERED: UNASYN 3 GM VIAL As Ordered ONE (06:43)
[2020-06-07] MEDS ORDERED: LR 1,000 ML IV ONE (07:00)
[2020-06-07] MEDS ORDERED: AMPICILLIN SOD/SULBACTAM SOD 3 GM in D5W MINI-BAG PLUS 100 ML IV ONE (07:00)
[2020-06-07] MEDS ORDERED: HumaLOG INSULIN (NovoLOG) PER UNIT As Ordered ONE (07:11)
[2020-06-07] MEDS ORDERED: MIDAZOLAM INJ 2MG/2ML VIAL (J2250 PER 1MG) As Ordered ONE (07:21)
[2020-06-07] MEDS ORDERED: LIDOCAINE 2% 100MG/5ML SDV (FOR ANES.) As Ordered ONE (07:21)
[2020-06-07] MEDS ORDERED: propofoL 200 MG/20 ML VIAL As Ordered ONE (07:21)
[2020-06-07] MEDS ORDERED: ROCURONIUM BROMIDE 50 MG/5 ML VIAL As Ordered ONE (07:21)
[2020-06-07] MEDS ORDERED: fentaNYL 100 MCG/2 ML INJECTION (J3010) As Ordered ONE (07:22)
[2020-06-07] MEDS ORDERED: HumaLOG INSULIN (NovoLOG) PER UNIT SC ONE (07:30)
[2020-06-07] MEDS ORDERED: ONDANSETRON 4MG/2ML VIAL As Ordered ONE (07:56)
[2020-06-07] MEDS ORDERED: ACETAMINOPHEN 1000MG 100ML IV BTL (OFIRMEV) (J0131 PER 10MG) As Ordered ONE (07:56)
[2020-06-07] MEDS ORDERED: SUGAMMADEX SODIUM 500 MG/5 ML VIAL (BRIDION) As Ordered ONE (07:56)
[2020-06-07] MEDS ORDERED: dexameTHASONE 4 MG/ML 1ML VIAL (J1100 PER 1MG) As Ordered ONE (07:56)
[2020-06-07] MEDS ORDERED: KETOROLAC 60MG 2ML VIAL As Ordered ONE (07:56)
[2020-06-07] MEDS ORDERED: ePHEDrine SULFATE 25 MG/5 ML(5MG/ML) SYRINGE As Ordered ONE (08:36)
--- NOTE | 2020-06-07 09:32 | ROOPDOC ---
[facility] Report Of Operation Report of Operation DATE OF PROCEDURE: 06/07/20 PREPROCEDURE DIAGNOSES: Cholelithiasis, history of CBD stone. POSTPROCEDURE DIAGNOSES: same. PROCEDURE: Robotic Assisted Laparoscopic Cholecystectomy with ICG for biliary duct identification. SURGEON: Feliz Espinal MD SERVICE SUPPORT REPRESENTATIVE: Madelyn Soto NP ANESTHESIA: General Anesthesia. ESTIMATED BLOOD LOSS: Approximately 20 mL. COMPLICATIONS: none. REMARKS: moderately distended, soft, thin walled gb, small pigment stones. PROCEDURE NOTE: 75 F who was admitted for abdominal pain, biliary obstruction back in November found to have elevated LFTs, underwent ERCP, stone extraction and stent placement. She is brought in today for interval laparoscopic chol ecystectomy. DESCRIPTION OF PROCEDURE: Patient was given a dose Unasyn 3 g IV preoperatively for prophylaxis, 5 mg of ICG was given regular after intubation. She was brought to the operating room, laid supine on the table, compression boots placed for DVT prophylaxis. General endotracheal anesthesia started. His abdomen then prepped and draped in usual sterile fashion. Surgical timeout was performed prior to confirm right procedure, right patient identification and other necessary information prior to starting surgery. Entry into the abdomen done through an incision aslightly to the left of the umbilical cleft. A Veress needle was inserted with a controlled fashion. CO2 insufflation started to pressure 15 mmHg. Using the same incision an 8 mm robotic trochar was placed under direct vision laparoscope. She had a good amount of thick omental adhesions around the umbilicus and towards the right side. She was positioned on a reverse Trendelenburg position with the left side tilted downwards. An 8 mm robotic trocar was placed under direct vision at the left midclavicular line. Using this 2 ports the omental adhesions were lysed sharply with scissors connected to monopolar cautery to create space for placing the right-sided ports for her surgery. Once he obtain adequate space a right midclavicular and right anterior axillary 8 mm port was placed under direct vision. A transversus abdominis plane block was then performed bilaterally using the lidocaine/marcaine mixture under laparoscopic guidance. The da Pb robot tower was then maneuvered in place and the trochards docked to the robot. I used a prograsp, forced bipolar, and hook cautery for the procedure with a 30 robotic camera. I unscrubbed and assumed control of the camera and instruments at the surgeon's console. Operative findings: She has a mildly enlarged fatty replaced liver. The gallbladder is moderately distended but relatively thin-walled. No active inflammation was appreciated. The fundus of the gallbladder was grasped and the gallbladder is elevated superiorly exposing the neck of the gallbladder. The peritoneum overlying the area is opened up and dissected free both anteriorly and posteriorly to help with retraction of the gallbladder. Initially the gallbladder did not fluoresce on firefly which may be a function of timing or continued cystic duct obstruction. After freeing the cystic duct circumferentially we can tra nsilluminate the cystic duct, gallbladder and common bile duct. The hepatocystic triangle was approached and dissected using hook cautery and firely visualization of the cystic duct. The cystic duct was identified coming off from the neck of the gallbladder. This was circumferentially dissected. The cystic artery was identified in its usual position medially behind a mildly enlarged lymph node of [place]ot. This was similarly circumferentially dissected off surrounding adipose tissue. We continued posterior dissection proximally at the neck of gallbladder to dissect the posterior wall of the gallbladder off the liver plate until a critical view of safety was achieved whereby only the previously identified duct and artery coursing through the neck the gallbladd er(photodocumentation done.) At this point the the cystic artery was most accessible and this was clipped 2 times and divided in between the hemlock clips. After again checking her anatomy and verifying with firely the course of thecystic duct and common bile duct, this was also clipped and divided with 2 clips remaining at the cystic duct stump. The rest of the gallbladder was then dissected free of the gallbladder bed using Bovie cautery. Mid spillage of bile content during the gallbladder dissection off the liver bed. The gallbladder was then placed in an Endo Catch bag and retrieved outside through the right axillary port site. We suctioned of visible bile spillage as well as a single stone that fell off the gallbladder was retrieved. We copiously irrigated the liver bed and around the the liver. The clips and liver bed was inspected for bleeding and bile leakage and none found. I closed the extraction site with a 2-0 vloc stitch. The abdomen was deflated, The trochars undocked, the robot removed from the field. Rest of the skin incisions closed with 4-0 Monocryl in subcuticular fashion. Dermabond placed to cover the incisions.. Patient was awakened, extubated and brought to recovery room stable. FELIZ ESPINAL MD Jun 07, 2020 09:32
[2020-06-07] MEDS ORDERED: METOCLOPRAMIDE INJ 10MG/2ML VIAL (J2765 PER 1) IV PRN (10:15)
[2020-06-07] MEDS ORDERED: fentaNYL 100 MCG/2 ML INJECTION (J3010) IV PRN (10:15)
[2020-06-07] MEDS ORDERED: ONDANSETRON 4MG/2ML VIAL IV PRN (10:15)
[2020-06-07] MEDS ORDERED: PERCOCET 5MG/325MG TAB PO PRN ×2 (10:15)
[2020-06-07] MEDS ORDERED: LR 1,000 ML IV SCH (10:15)
[2020-06-07] MEDS ORDERED: HYDROMORPHONE HCL 0.5 MG/ 0.5 ML SYRINGE (J1170 PER 1) IV PRN (10:15)
[2020-06-07] MEDS ORDERED: oxyCODONE 5MG TAB As Ordered ONE (10:26)
[2020-06-07] MEDS ORDERED: oxyCODONE 5MG TAB PO PRN (10:45)
[2020-06-07 12:20] VITALS: BP 180/80
[2020-06-07] MEDS ORDERED: KETOROLAC 30 MG/ML 1ML VIAL IV SCH (15:00)
== END 2020-06-07 12:30 | disposition home or self-care (01) ==
LOC: M SDC 06:10
PROVIDERS: ATTEND Surgery
DX: K80.12 Calculus of gallbladder with acute and chronic cholecystitis without obstruction (principal); R01.1 Cardiac murmur, unspecified; I10 Essential (primary) hypertension; E78.00 Pure hypercholesterolemia, unspecified; E11.9 Type 2 diabetes mellitus without complications; M12.9 Arthropathy, unspecified; Z78.0 Asymptomatic menopausal state; Z79.82 Long term (current) use of aspirin; Z79.899 Other long term (current) drug therapy; Z85.42 Personal history of malignant neoplasm of other parts of uterus; Z90.710 Acquired absence of both cervix and uterus; Z91.040 Latex allergy status
CPT/HCPCS: 47562; 88304; J0131; J1100; J1885; J2250; J2405; J3010

== ENCOUNTER → 2020-07-11 | Outpatient (CLI) | payer MEDICARE ==
[~2020-07-11] MED LIST changes: -BUPIVACAINE HCL 0.25% 30ML VIAL As Ordered ONE; -LIDOCAINE 1% MDV 20ML VIAL SQ PRN; -LIDOCAINE 1% SDV 30ML VIAL As Ordered ONE
== END ==
LOC: M LABSMTC 10:10
PROVIDERS: ATTEND Anesthesiology
DX: Z01.812 Encounter for preprocedural laboratory examination (principal); Z20.828 Contact with and (suspected) exposure to other viral communicable diseases
CPT/HCPCS: C9803; U0003

== ENCOUNTER 2020-07-16 05:59 | Day surgery (SDC) | payer MEDICARE ==
[~2020-07-16] VITALS: Ht 160 cm; Wt 83.0 kg
[2020-07-16] MEDS ORDERED: LR 1,000 ML IV ONE (07:00)
[2020-07-16] MEDS ORDERED: NS 1,000 ML IV ONE (07:00)
[2020-07-16] MEDS ORDERED: ISOVUE-300 61% 50ML VIAL As Ordered ONE (07:11)
[2020-07-16] MEDS ORDERED: propofoL 200 MG/20 ML VIAL As Ordered ONE (07:16)
[2020-07-16] MEDS ORDERED: LIDOCAINE 2% 100MG/5ML SDV (FOR ANES.) As Ordered ONE (07:16)
[2020-07-16] MEDS ORDERED: MIDAZOLAM INJ 2MG/2ML VIAL (J2250 PER 1MG) As Ordered ONE (07:16)
[2020-07-16] MEDS ORDERED: ROCURONIUM BROMIDE 50 MG/5 ML VIAL As Ordered ONE (07:16)
[2020-07-16] MEDS ORDERED: fentaNYL 100 MCG/2 ML INJECTION (J3010) As Ordered ONE (07:17)
[2020-07-16] MEDS ORDERED: SUGAMMADEX SODIUM 500 MG/5 ML VIAL (BRIDION) As Ordered ONE (07:58)
[2020-07-16] MEDS ORDERED: dexameTHASONE 4 MG/ML 1ML VIAL (J1100 PER 1MG) As Ordered ONE (07:58)
[2020-07-16] MEDS ORDERED: ONDANSETRON 4MG/2ML VIAL As Ordered ONE (07:58)
[2020-07-16] MEDS ORDERED: METOCLOPRAMIDE INJ 10MG/2ML VIAL (J2765 PER 1) As Ordered ONE (07:59)
--- NOTE | 2020-07-16 09:01 | REP ---
INDICATION: BILE DUCT OBSTRUCTION, STONE. COMPARISON: 04/05/2020 TECHNIQUE: Multiple C-arm views performed during ERCP. FINDINGS: Contrast opacifies the common bile duct. No definite filling defect is seen. Catheter manipulation is performed. A stent is placed in the common bile duct, extending into the duodenum. IMPRESSION: 6 minutes 27 seconds fluoroscopy time utilized. <Electronically signed by Michael Sevilla > 07/16/20 0824
--- NOTE | 2020-07-16 09:01 | ROOR ---
Patient Name: Madelyn Zepeda Procedure Date: 07/16/2020 7:23 AM Date of : 1945 Age: 75 Room: [facility] Gender: Female Note Status: Finalized Procedure: ERCP Indications: Biliary stent removal, Prior Endoscopic Retrograde Cholangiography Providers: Hero GARCIA MD Referring MD: 1. No Referring Physician 1. No Referring Physician, Admin., GULSHAN Montanez PA-C Requesting Provider: Medicines: Monitored Anesthesia Care Complications: No immediate complications. Procedure: Pre-Anesthesia Assessment: - The heart rate, respiratory rate, oxygen saturations, blood pressure, adequacy of pulmonary ventilation, and response to care were monitored throughout the procedure. The Duodenoscope was introduced through the mouth, and advanced to the duodenum and used to inject contrast into the bile duct. The ERCP was accomplished without difficulty. The patient tolerated the procedure well. Findings: The pool servicer film was normal. The esophagus was successfully intubated under direct vision without detailed examination of the pharynx, larynx, and associated structures, and upper GI tract. The upper GI tract was grossly normal. One temporary stent originating in the biliary tree was emerging from the major papilla. The stent was visibly patent. One stent was removed from the biliary tree using a rat-toothed forceps. The papilla is located next to a small duodenal diverticulum. A biliary sphincterotomy had been performed. The sphincterotomy appeared open. A wire was passed into the biliary tree. The bile duct was then deeply cannulated over the guidewire. Contrast was injected. I personally interpreted the bile duct images. Ductal flow of contrast was adequate. Image quality was adequate. Opacification of the entire biliary tree except for the gallbladder was successful. The maximum diameter of the ducts was 12 mm. A cholecystectomy had been performed. The lower third of the main bile duct contained filling defect(s). The CBD was swept with a 12 mm balloon, and nothing was found. The lower third of the main bile duct was partially obstructed by a 1 cm polypoid fold or lesion. This defect may be related to the peripapillary diverticulum impressing on the distal duct, however the defect is persistent on several sweeps. The lower third of the main bile duct was biopsied with a cold forceps for histology. Cells for cytology were obtained by brushing in the lower third of the main bile duct. One 10 Fr by 7 cm temporary stent was placed into the common bile duct. Bile flowed through the stent. The stent was in good position. Impression: - The patient has had a cholecystectomy. - One visibly patent stent from the biliary tree was seen in the major papilla. This was removed. - Prior biliary sphincterotomy appeared open. - A filling defect/1 cm polypoid mass (or impression by duodenal diverticulum) was seen in the very distal common bile duct. - Biopsy was performed in the lower third of the main duct. - Cells for cytology obtained in the lower third of the main duct. - One temporary stent was placed into the common bile duct. Recommendation: - Await path results. - Return to my office in 3 weeks. Hero Garcia MD Hero GARCIA MD 07/16/2020 9:00:57 AM Electronically signed by Hero GARCIA MD Number of Addenda: 0 Note Initiated On: 07/16/2020 7:23 AM Estimated Blood Loss: Estimated blood loss: none.
[2020-07-16] MEDS ORDERED: oxyCODONE 5MG TAB PO PRN (09:15)
[2020-07-16] MEDS ORDERED: LR 1,000 ML IV SCH (09:15)
[2020-07-16] MEDS ORDERED: fentaNYL 100 MCG/2 ML INJECTION (J3010) IV PRN (09:15)
[2020-07-16] MEDS ORDERED: ONDANSETRON 4MG/2ML VIAL IV PRN (09:15)
[2020-07-16] MEDS ORDERED: HYDROMORPHONE HCL 0.5 MG/ 0.5 ML SYRINGE (J1170 PER 1) IV PRN (09:15)
[2020-07-16 10:15] VITALS: BP 158/82
== END 2020-07-16 10:28 | disposition home or self-care (01) ==
LOC: M SDC 05:59
PROVIDERS: ATTEND Internal Medicine Gastroenterology
DX: Z46.59 Encounter for fitting and adjustment of other gastrointestinal appliance and device (principal); R93.2 Abnormal findings on diagnostic imaging of liver and biliary tract; Z96.89 Presence of other specified functional implants; Z90.49 Acquired absence of other specified parts of digestive tract; Z98.890 Other specified postprocedural states; I10 Essential (primary) hypertension; K21.9 Gastro-esophageal reflux disease without esophagitis; E11.9 Type 2 diabetes mellitus without complications; E78.00 Pure hypercholesterolemia, unspecified; Z79.82 Long term (current) use of aspirin; Z79.899 Other long term (current) drug therapy
CPT/HCPCS: 43261; 43276; 74330; 88104; 88305; C1769; C1876; J2250; J2405; J2765; J3010; Q9967

== ENCOUNTER → 2020-08-01 | Outpatient (CLI) | payer MEDICARE ==
--- NOTE | 2020-08-01 16:03 | REP ---
INDICATION: OBSTRUCTION OF BILE DUCT-POSS. DISTAL CBD STRICT/LES ON ERCP. COMPARISON: Comparison CT study April 04, 2020. Comparison ERCP images July 16, 2020.. TECHNIQUE: T2 weighted axial and coronal scans were acquired. MRCP acquisition is performed and maximum intensity projection images are generated. FINDINGS: There is a low signal intensity linear structure in the common bile duct consistent with the stent is seen on ERCP imaging. No intrahepatic or extrahepatic biliary ductal dilation is observed. The pancreatic duct is not felt to be dilated. There is no evidence of stone or mass lesion. There is evidence of a descending duodenal diverticulum directed medially at the level of the distal CBD. This correlates with the CT findings. 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 A stent is noted in the common bile duct. No biliary or pancreatic ductal dilation. No mass or focal stricture is apparent. <Electronically signed by Maulik Castillo > 08/01/20 [id number]
== END ==
LOC: M RAD 13:07
PROVIDERS: ATTEND Internal Medicine Gastroenterology
DX: K83.1 Obstruction of bile duct (principal); K57.50 Diverticulosis of both small and large intestine without perforation or abscess without bleeding; Z95.828 Presence of other vascular implants and grafts

== ENCOUNTER → 2020-08-23 | Outpatient (CLI) | payer MEDICARE ==
[~2020-08-23] MED LIST changes: +VENTAER INH
== END ==
LOC: M LABSMTC 10:33
PROVIDERS: ATTEND Anesthesiology
DX: Z01.812 Encounter for preprocedural laboratory examination (principal); Z20.828 Contact with and (suspected) exposure to other viral communicable diseases

== ENCOUNTER 2020-08-28 10:56 | Day surgery (SDC) | payer MEDICARE ==
[~2020-08-28] VITALS: Ht 160 cm; Wt 83.5 kg
[~2020-08-28 10:56] MED LIST changes: +NS 1,000 ML IV ONE
[2020-08-28] MEDS ORDERED: propofoL 200 MG/20 ML VIAL As Ordered ONE (13:30)
[2020-08-28] MEDS ORDERED: LIDOCAINE 2% 100MG/5ML SDV (FOR ANES.) As Ordered ONE (13:30)
--- NOTE | 2020-08-28 14:05 | ROOR ---
Patient Name: Madelyn Zepeda Procedure Date: 08/28/2020 1:41 PM Date of : 1945 Age: 75 Room: [facility] Gender: Female Note Status: Finalized Procedure: Upper GI endoscopy Indications: Biliary stent removal Providers: Hero HARVEY MD Referring MD: GULSHAN Montanez PA-C Requesting Provider: Medicines: Monitored Anesthesia Care Complications: No immediate complications. Procedure: Pre-Anesthesia Assessment: - The heart rate, respiratory rate, oxygen saturations, blood pressure, adequacy of pulmonary ventilation, and response to care were monitored throughout the procedure. The Endoscope was introduced through the mouth, and advanced to the second part of duodenum. The upper GI endoscopy was accomplished without difficulty. The patient tolerated the procedure well. Findings: Moderately severe esophagitis was found in the lower third of the esophagus. Biopsies were taken with a cold forceps for histology. A small hiatal hernia was present. The area of the papilla and examined duodenum were normal. There is no endoscopic evidence of biliary stent Impression: - Moderately severe reflux esophagitis. Rule out Rouse's esophagus. Biopsied. - Small hiatal hernia. - Normal area of the papilla and examined duodenum. - The stent was not seen and has likely passed spontaneously. Plan KUB to exclude stent migration into bile duct Recommendation: - Perform a flat plate abdominal x-ray today. - Use Prilosec (omeprazole) 40 mg PO daily. - (the script was sent to your pharmacy on file) Procedure Code(s): --- Professional --- 27207, Esophagogastroduodenoscopy, flexible, transoral; with biopsy, single or multiple Diagnosis Code(s): --- Professional --- K44.9, Diaphragmatic hernia without obstruction or gangrene K21.0, Gastro-esophageal reflux disease with esophagitis Z46.59, Encounter for fitting and adjustment of other gastrointestinal appliance and device CPT copyright 2019 [employer]. All rights reserved. The codes documented in this report are preliminary and upon certified medical coder review may be revised to meet current compliance requirements. Hero Harvey MD Hero HARVEY MD 08/28/2020 2:06:12 PM Electronically signed by Hero HARVEY MD Number of Addenda: 0 Note Initiated On: 08/28/2020 1:41 PM Estimated Blood Loss: Estimated blood loss: none.
[2020-08-28 14:30] VITALS: BP 153/69
--- NOTE | 2020-08-28 14:36 | REP ---
INDICATION: Presence/absence of biliary stent. (pt in rm 10 OPP). COMPARISON: Comparison ERCP July 16, 2020.. TECHNIQUE: Single portably obtained AP supine radiograph of the abdomen. FINDINGS: The previously placed biliary stent is again noted in position in the right upper quadrant. There are air-filled loops of normal caliber small bowel in the central abdomen. Air and stool seen in a nondistended colon. Nonspecific bowel gas pattern. No mass or organomegaly seen. IMPRESSION: The common bile duct stent is seen in place in the right upper quadrant. <Electronically signed by Maulik Castillo > 08/28/20 [id number]
[2020-08-30] MEDS ORDERED: ASPI81TA26 PO (10:13)
[2020-08-30] MEDS ORDERED: VITA-243 PO (10:13)
== END 2020-08-28 14:37 | disposition home or self-care (01) ==
LOC: M OPP 10:56
PROVIDERS: ATTEND Internal Medicine Gastroenterology
DX: K21.00 Gastro-esophageal reflux disease with esophagitis, without bleeding (principal); K44.9 Diaphragmatic hernia without obstruction or gangrene; Z80.0 Family history of malignant neoplasm of digestive organs; E11.9 Type 2 diabetes mellitus without complications; Z79.82 Long term (current) use of aspirin; Z79.84 Long term (current) use of oral hypoglycemic drugs; Z79.899 Other long term (current) drug therapy; Z91.040 Latex allergy status

== ENCOUNTER → 2020-08-29 | Outpatient (CLI) | payer MEDICARE ==
[~2020-08-29] MED LIST changes: +ASPI81TA26 PO; -NS 1,000 ML IV ONE; +VITA-243 PO
== END ==
LOC: M LABSMTC 12:08
PROVIDERS: ATTEND Anesthesiology
DX: Z11.59 Encounter for screening for other viral diseases (principal)

== ENCOUNTER → 2020-09-26 | Outpatient (CLI) | payer MEDICARE ==
[~2020-09-26] MED LIST changes: +OMEP40CA97 PO
== END ==
LOC: M LABSMTC 09:48
PROVIDERS: ATTEND Anesthesiology
DX: Z01.812 Encounter for preprocedural laboratory examination (principal); Z20.822 Contact with and (suspected) exposure to COVID-19

== ENCOUNTER 2020-10-01 06:02 | Day surgery (SDC) | payer MEDICARE ==
[~2020-10-01] VITALS: Ht 160 cm; Wt 81.6 kg
[2020-10-01] MEDS ORDERED: ISOVUE-300 61% 50ML VIAL As Ordered ONE (07:16)
[2020-10-01] MEDS ORDERED: propofoL 200 MG/20 ML VIAL As Ordered ONE (07:23)
[2020-10-01] MEDS ORDERED: ONDANSETRON 4MG/2ML VIAL As Ordered ONE (07:23)
[2020-10-01] MEDS ORDERED: LIDOCAINE 2% 100MG/5ML SDV (FOR ANES.) As Ordered ONE (07:23)
[2020-10-01] MEDS ORDERED: dexameTHASONE 4 MG/ML 1ML VIAL (J1100 PER 1MG) As Ordered ONE (07:23)
[2020-10-01] MEDS ORDERED: SUCCINYLCHOLINE 100 MG/5 ML SYRINGE (J0330) As Ordered ONE (07:23)
[2020-10-01] MEDS ORDERED: fentaNYL 100 MCG/2 ML INJECTION (J3010) As Ordered ONE (07:24)
[2020-10-01] MEDS ORDERED: MIDAZOLAM INJ 2MG/2ML VIAL (J2250 PER 1MG) As Ordered ONE (07:25)
[2020-10-01] MEDS ORDERED: ePHEDrine SULFATE 25 MG/5 ML(5MG/ML) SYRINGE As Ordered ONE (07:58)
--- NOTE | 2020-10-01 08:05 | ECGEPIP ---
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 Electronically Signed on 10-01-2020 8:04:59 EST by Tez Archer
--- NOTE | 2020-10-01 08:50 | ROOR ---
Patient Name: Madelyn Zepeda Procedure Date: 10/01/2020 7:09 AM Date of : 1945 Age: 75 Room: [facility] Gender: Female Note Status: Finalized Procedure: ERCP Indications: Biliary stent removal Providers: Hero GARCIA MD Referring MD: GULSHAN Montanez PA-C Requesting Provider: Medicines: General Anesthesia Complications: No immediate complications. Procedure: Pre-Anesthesia Assessment: - The heart rate, respiratory rate, oxygen saturations, blood pressure, adequacy of pulmonary ventilation, and response to care were monitored throughout the procedure. The Duodenoscope was introduced through the mouth, and advanced to the duodenum and used to inject contrast into the bile duct. The ERCP was accomplished without difficulty. The patient tolerated the procedure well. Findings: A biliary stent was visible on the rugby union footballer film. One stent was removed from the biliary tree using a snare. A wire was passed into the biliary tree. The bile duct was then deeply cannulated over the guidewire. Contrast was injected. I personally interpreted the bile duct images. Ductal flow of contrast was adequate. Image quality was adequate. A extrinsic impression on the lower third of the main bile duct was seen. The biliary tree was otherwise normal. (s/p cholecystectomy). To discover objects, the biliary tree was swept with a 12 mm balloon starting at the bifurcation. Nothing was found. Cells for cytology were obtained by brushing in the lower third of the main bile duct. 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 The papilla is noted for a previous sphincterotomy. A biliary stent is seen protruding just slightly from the papilla. - One stent was removed from the biliary tree. - An extrinsic impression likely related to the peripapillary diverticulum is seen on the lower third of the main bile duct. - The biliary tree was swept and nothing was found. - Cells for cytology obtained in the lower third of the main duct. Recommendation: - Telephone endoscopist for pathology results in 2 weeks. - Observe patient's clinical course. - I anticipate no further need for intervention. Procedure Code(s): --- Professional --- 35608, Endoscopic retrograde cholangiopancreatography (ERCP); with removal of foreign body(s) or stent(s) from biliary/pancreatic duct(s) Diagnosis Code(s): --- Professional --- Z46.59, Encounter for fitting and adjustment of other gastrointestinal appliance and device K83.9, Disease of biliary tract, unspecified CPT copyright 2019 [employer]. All rights reserved. The codes documented in this report are preliminary and upon pre coder review may be revised to meet current compliance requirements. Hero Garcia MD Hero GARCIA MD 10/01/2020 8:51:20 AM Electronically signed by Hero GARCIA MD Number of Addenda: 0 Note Initiated On: 10/01/2020 7:09 AM Estimated Blood Loss: Estimated blood loss: none.
[2020-10-01] MEDS ORDERED: METOCLOPRAMIDE INJ 10MG/2ML VIAL (J2765 PER 1) IV PRN (09:00)
[2020-10-01] MEDS ORDERED: LR 1,000 ML IV SCH (09:00)
[2020-10-01] MEDS ORDERED: ONDANSETRON 4MG/2ML VIAL IV PRN (09:00)
[2020-10-01] MEDS ORDERED: fentaNYL 100 MCG/2 ML INJECTION (J3010) IV PRN (09:00)
[2020-10-01] MEDS ORDERED: PERCOCET 5MG/325MG TAB PO PRN (09:00)
--- NOTE | 2020-10-01 09:02 | REP ---
INDICATION: BILE DUCT STENT. COMPARISON: None. TECHNIQUE: Intraoperative fluoroscopic imaging using portable C-arm technique from ERCP examination. FINDINGS: Common bile duct and intrahepatic biliary ducts are identified by contrast opacification and appear essentially normal. Previously noted common bile duct stent is not identified on current examination. Cystic duct and gallbladder are not identified. Contrast flows normally into the visible portion of the duodenum. Total fluoroscopic time 2 minutes 32 seconds IMPRESSION: Normal appearance of the common bile duct and intrahepatic biliary ducts. No evidence for CBD stent <Electronically signed by Brendan Li > 10/01/20 0858
[2020-10-01] MEDS ORDERED: KETOROLAC 30 MG/ML 1ML VIAL IV PRN (09:15)
[2020-10-01 09:23] VITALS: BP 154/70
== END 2020-10-01 09:52 | disposition home or self-care (01) ==
LOC: M SDC 06:02
PROVIDERS: ATTEND Internal Medicine Gastroenterology
DX: Z46.59 Encounter for fitting and adjustment of other gastrointestinal appliance and device (principal); K83.9 Disease of biliary tract, unspecified; K31.4 Gastric diverticulum; I10 Essential (primary) hypertension; E11.9 Type 2 diabetes mellitus without complications; E78.2 Mixed hyperlipidemia; E66.9 Obesity, unspecified; E55.9 Vitamin D deficiency, unspecified; K21.9 Gastro-esophageal reflux disease without esophagitis; K44.9 Diaphragmatic hernia without obstruction or gangrene; M12.9 Arthropathy, unspecified; M25.50 Pain in unspecified joint; R01.1 Cardiac murmur, unspecified; R94.31 Abnormal electrocardiogram [ECG] [EKG]; Z68.32 Body mass index [BMI] 32.0-32.9, adult; Z79.899 Other long term (current) drug therapy; Z91.040 Latex allergy status
CPT/HCPCS: 43275; 74330; 88108; 93005; J0330; J2250; J2405; J3010; Q9967

== ENCOUNTER → 2022-02-11 | Outpatient (CLI) | payer MEDICARE ==
[~2022-02-11] MED LIST changes: -D31000TA2 PO; +ISOS1TAB35 PO; -ISOS30TA4 PO; +LOSA100T45 PO; -LOSA100T50 PO; -OMEP-221 PO; +OMEP40CA4 PO; +OMEP40CA5 PO; -OMEP40CA97 PO; +VITA100093 PO
== END ==
LOC: M RAD 09:47
PROVIDERS: ATTEND Physician Assistant
DX: M79.662 Pain in left lower leg (principal); M71.22 Synovial cyst of popliteal space [Baker], left knee

== ENCOUNTER → 2022-05-19 | Outpatient (CLI) | payer MEDICARE | LOC: M RAD 09:39 | PROVIDERS: ATTEND Family Medicine | DX: I65.23 Occlusion and stenosis of bilateral carotid arteries (principal) ==

== ENCOUNTER → 2023-01-21 | Outpatient (REF) | payer MEDICARE ==
[~2023-01-21] MED LIST changes: +COLE625T17 PO; -COLE625TAB PO; -LOSA100T45 PO; +LOSA100T46 PO
[2023-01-21 13:40] LABS: BASO # 0.1 10^3/uL (0.0-0.2); BASO % 1.1 % (0.0-1.0); EOS # 0.2 10^3/uL (0.0-0.5); EOS % 1.9 % (0.0-3.0); HEMATOCRIT 43.6 % (36.0-47.0); HEMOGLOBIN 14.8 g/dl (12.0-15.5); LYMPH # 2.1 10^3/uL (1.5-5.0); LYMPH % 22.6 % (24.0-44.0); MEAN CORPUSCULAR HEMOGLOBIN 32.2 pg (27.0-33.0); MEAN CORPUSCULAR HGB CONC 33.9 g/dl (32.0-36.5); MEAN CORPUSCULAR VOLUME 94.8 fl (80.0-96.0); MONO # 0.6 10^3/uL (0.0-0.8); MONO % 6.6 % (2.0-8.0); NEUTROPHILS # 6.4 10^3/uL (1.5-8.5); NEUTROPHILS % 67.2 % (36.0-66.0); PLATELET COUNT, AUTOMATED 327 10^3/uL (150-450); WHITE BLOOD COUNT 9.5 10^3/uL (4.0-10.0)
[2023-01-21 13:46] LABS: ALBUMIN 3.5 G/DL (3.2-5.2); ALKALINE PHOSPHATASE 47 U/L (46-116); ALT/SGPT 19 U/L (7.0-40); AST/SGOT < 8 U/L (<34); BILIRUBIN,TOTAL 0.3 MG/DL (0.3-1.2); BLOOD UREA NITROGEN 22 MG/DL (9-23); CALCIUM LEVEL 9.2 MG/DL (8.3-10.6); CARBON DIOXIDE LEVEL 29 MMOL/L (20-31); CHLORIDE LEVEL 105 MMOL/L (98-107); CHOLESTEROL LEVEL 179 MG/DL (<200); CHOLESTEROL RISK RATIO 5.81 (<5); CREATININE FOR GFR 0.88 MG/DL (0.55-1.30); GLOMERULAR FILTRATION RATE > 60.0 (>39); GLUCOSE, FASTING 193 MG/DL (74-106); HDL CHOLESTEROL 30.8 MG/DL (>40); NON-HDL-C 148.2 MG/DL; POTASSIUM SERUM 4.9 MMOL/L (3.5-5.1); SODIUM LEVEL 140 MMOL/L (136-145); TOTAL PROTEIN 6.3 G/DL (5.7-8.2); TRIGLYCERIDES LEVEL 447 MG/DL (<150)
[2023-01-21 13:50] LABS: THYROID STIMULATING HORMONE 5.053 uIU/ML (0.55-4.78)
[2023-01-21 13:52] LABS: CPK CREATINE PHOSPHOKINASE 52 U/L (34-145)
[2023-01-21 13:58] LABS: HEMOGLOBIN A1c 7.5 % (4.0-6.0)
== END ==
LOC: M LABDRWAD 12:43
PROVIDERS: ATTEND Internal Medicine Cardiovascular Disease
DX: R01.1 Cardiac murmur, unspecified (principal); R94.31 Abnormal electrocardiogram [ECG] [EKG]; R06.02 Shortness of breath; R60.0 Localized edema; E78.2 Mixed hyperlipidemia; E11.69 Type 2 diabetes mellitus with other specified complication; E66.9 Obesity, unspecified; I10 Essential (primary) hypertension; R42 Dizziness and giddiness; K21.9 Gastro-esophageal reflux disease without esophagitis; M25.50 Pain in unspecified joint; G89.29 Other chronic pain; E55.9 Vitamin D deficiency, unspecified

== ENCOUNTER → 2023-03-10 | Outpatient (REF) | payer MEDICARE | LOC: M SFHCADAM 09:09 | PROVIDERS: ATTEND Family Medicine | DX: E11.65 Type 2 diabetes mellitus with hyperglycemia (principal) ==

== ENCOUNTER → 2023-03-30 | Outpatient (CLI) | payer MEDICARE | LOC: M ADAMS 09:52 | PROVIDERS: ATTEND Family Medicine | DX: R05.9 Cough, unspecified (principal) ==

== ENCOUNTER → 2023-11-18 | Outpatient (REF) | payer MEDICARE | LOC: M SFHCADAM 08:59 | PROVIDERS: ATTEND Family Medicine | DX: E11.65 Type 2 diabetes mellitus with hyperglycemia (principal) ==

== ENCOUNTER → 2023-11-18 | Outpatient (CLI) | payer MEDICARE | LOC: M ADAMS 09:06 | PROVIDERS: ATTEND Family Medicine | DX: R05.9 Cough, unspecified (principal) ==

== ENCOUNTER → 2023-12-01 | Outpatient (CLI) | payer MEDICARE | LOC: M RAD 09:21 | PROVIDERS: ATTEND Family Medicine | DX: R63.4 Abnormal weight loss (principal); R16.1 Splenomegaly, not elsewhere classified ==

== ENCOUNTER → 2023-12-11 | Outpatient (REF) | payer MEDICARE | LOC: M LABDRWAD 12:49 | PROVIDERS: ATTEND Family Medicine | DX: R16.1 Splenomegaly, not elsewhere classified (principal) ==

== ENCOUNTER → 2023-12-30 | Outpatient (REF) | payer MEDICARE ==
[2023-12-30 14:13] LABS: BASO # 0.1 10^3/uL (0.0-0.2); BASO % 1.1 % (0.0-1.0); EOS # 0.2 10^3/uL (0.0-0.5); EOS % 2.6 % (0.0-3.0); HEMOGLOBIN 12.5 g/dl (12.0-15.5); LYMPH # 1.6 10^3/uL (1.5-5.0); LYMPH % 18.8 % (24.0-44.0); MEAN CORPUSCULAR HEMOGLOBIN 31.3 pg (27.0-33.0); MEAN CORPUSCULAR HGB CONC 32.9 g/dl (32.0-36.5); MEAN CORPUSCULAR VOLUME 95.2 fl (80.0-96.0); MONO # 0.7 10^3/uL (0.0-0.8); MONO % 8.2 % (2.0-8.0); NEUTROPHILS # 5.8 10^3/uL (1.5-8.5); NEUTROPHILS % 68.8 % (36.0-66.0); PLATELET COUNT, AUTOMATED 314 10^3/uL (150-450); RED BLOOD COUNT 3.99 10^6/uL (4.00-5.40); WHITE BLOOD COUNT 8.5 10^3/uL (4.0-10.0)
== END ==
LOC: M SFHCADAM 09:05
PROVIDERS: ATTEND Family Medicine
DX: D72.824 Basophilia (principal)

== ENCOUNTER → 2024-07-19 | Outpatient (REF) | payer MEDICARE ==
[~2024-07-19] MED LIST changes: +GLIP10TA15 PO; -GLIP10TA6 PO
== END ==
LOC: M SFHCADAM 08:38
PROVIDERS: ATTEND Family Medicine
DX: E11.65 Type 2 diabetes mellitus with hyperglycemia (principal); I10 Essential (primary) hypertension

== ENCOUNTER → 2024-09-13 | Outpatient (CLI) | payer MEDICARE | LOC: M PLAIMG 09:10 | PROVIDERS: ATTEND Family Medicine | DX: M25.512 Pain in left shoulder (principal) ==